=== PATIENT | male | born 1940 | race Two or more races ===

== ENCOUNTER 2023-07-31 02:55 | Emergency (ER) | payer MEDICARE, OTHER, SELFPAY ==
[2023-07-31 03:12] VITALS: BP 138/94; PULSE 75; RESP 18; TEMP 36.3; O2SAT 99; BMI 27.1
--- NOTE | 2023-07-31 03:19 | EX.ED.DYSGE1 ---
HPI History of Present Illness Chief Complaint: Nausea/Vomiting Informant: patient Onset/Context/Timing Onset: Today Context: Sudden Onset Timing: Continuous Quality: Spinning Location: Generalized Worsened by: Laying flat Relieved by: Nothing Narrative Narrative: Patient presents with dizziness, nausea, and vomiting that began tonight. Patient states it began rather suddenly. Patient states that he felt like things were spinning. Patient states he got up to go to the bathroom and was having difficulty walking because he was feeling like the room was spinning. Patient denies any tinnitus or hearing changes. Patient states he started having some nausea and vomiting. Patient states it was mostly dry heaves. Patient denies any diarrhea. Patient denies any melena or hematochezia. Patient denies any urinary complaints. Patient denies any chest pain or shortness of breath. [facility] Medical History BPH (benign prostatic hyperplasia) Heart disease Legally blind DC (myocardial infarction) Pacemaker Home Medications diazepam 2 mg tablet 2 mg PO TID PRN PRN Vertigo #10 TABLETS 07/31/23 [Rx Last Taken Unknown] dofetilide 500 mcg capsule 500 mcg PO Q12H 07/31/23 [History Last Taken Unknown] dorzolamide 22.3 mg-timolol 6.8 mg/mL eye drops 1 drp ophthalmic (eye) Q12H 07/31/23 [History Last Taken Unknown] finasteride 5 mg tablet 5 mg PO DAILY 07/31/23 [History Last Taken Unknown] fluticasone propionate 50 mcg/actuation nasal spray,suspension 2 spray intranasal DAILY 07/31/23 [History Last Taken Unknown] latanoprost 0.005 % eye drops 1 drp ophthalmic (eye) QHS 07/31/23 [History Last Taken Unknown] metoprolol tartrate 50 mg tablet 50 mg PO Q12H 07/31/23 [History Last Taken Unknown] naproxen 250 mg tablet 250 mg PO Q12H 07/31/23 [History Last Taken Unknown] Allergy/AdvReac Type Severity Reaction Status Date / Time No Known Allergies Allergy Verified 07/31/23 03:04 Surgical History AICD (automatic cardioverter/defibrillator) present Hx of bilateral hip replacements Social History Smoking Status: Never smoker ROS ROS ED Constitutional Constitutional ED: Denies chills or fever(s) Eyes Eyes: Denies blurry vision or change in vision ENT ENT ED: Denies rhinorrhea or sore throat Cardiovascular Cardiovascular: Denies chest pain or palpitations Respiratory/Chest Respiratory/Chest: Reports cough; Denies dyspnea Gastrointestinal Gastrointestinal: Reports nausea and vomiting Genitourinary Genitourinary ED: Denies dysuria or hematuria Musculoskeletal Musculoskeletal: Denies back pain or neck pain Integumentary Denies abscess or rash Neurologic Neurologic: Denies headache(s) or weakness Allergic/Immunologic Allergic/Immunologic ED: Denies mouth swelling or urticaria EXAM Physical Exam Const Vital Signs: 07/31/23 03:12 Temperature 97.4 F L Temperature Source Oral Pulse Rate 75 Respiratory Rate 18 Blood Pressure 138/94 H Blood Pressure Mean 108 Pulse Ox 99 Positive well nourished and well developed General Appearance ED: well developed and NAD HEENT Reports moist mucous membranes Eyes EOMs intact bilaterally Eyes Narrative: There is no nystagmus noted. Neck supple and no JVD Resp normal respiratory effort and clear to auscultation bilaterally Cardio regular rate and regular rhythm GI non-tender and non-distended Palpation: soft Neuro oriented x3, CN's II-XII intact bilaterally and no sensory deficits noted Sensorium / Orientation: alert Motor Exam: strength 5/5 throughout MDM MDM MDM Narrative Medical decision making narrative: Differential diagnosis includes vertigo, labyrinthitis, electrolyte abnormality, stroke, viral illness, and dehydration. CT scan of the brain will be obtained to assess for stroke and intracranial bleeding. CBC will be obtained to assess for leukocytosis and anemia. Basic metabolic profile will be obtained to assess for electrolyte abnormality and renal function. COVID-19, influenza, and RSV PCR will be obtained to assess for viral infection. Lab Data Attestation: I reviewed the patient's lab results. Lab results narrative: CBC was reviewed. Hemoglobin was slightly low at 12.3 and hematocrit was 38.1. The remainder is within normal limits. Basic metabolic profile was reviewed. BUN was 22 and creatinine was 1.37. COVID-19 PCR was reviewed and was negative. Influenza PCR was reviewed and was negative for influenza A and influenza B. RSV PCR was reviewed and was negative. Labs: Laboratory Results - last 24 hr 07/31/23 04:04 WBC 9.5 RBC 4.31 L Hgb 12.3 L Hct 38.1 L MCV 88.4 MCH 28.5 MCHC 32.3 RDW Std Deviation 49.1 H RDW Coeff of Vita 15.0 H Plt Count 239 MPV 10.4 Immature Gran % (Auto) 0.300 Neut % (Auto) 69.3 Lymph % (Auto) 19.0 Major % (Auto) 8.9 Eos % (Auto) 1.8 Baso % (Auto) 0.7 Absolute Neuts (auto) 6.6 Absolute Lymphs (auto) 1.80 Nucleated RBC % 0 Sodium 136 Potassium 4.4 Chloride 107 Carbon Dioxide 23.0 Anion Gap 6 BUN 22 H Creatinine 1.37 H Estim Creat Clear Calc 42.29 Est GFR (MDRD) Af Amer 64 Est GFR (MDRD) Non-Af 53 L BUN/Creatinine Ratio 16.1 Glucose 126 H Calcium 8.8 Radiography Diagnostic Testing: Clinical Impression(s) from Imaging Studies Brain CT 07/31/23 03:34 IMPRESSION: 1. Mild chronic intracranial changes. No convincing acute abnormality. 2. Marked paranasal sinusitis. Including at least mild acute sinusitis superimposed on chronic disease. 3. Completely opacified and mildly expansile appearance of the frontal sinuses with very thin segment of left posterior left frontal sinus wall. 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 4. Consider enhanced exam or MRI without and with contrast if there is clinical suspicion of early intracranial spread of infection-inflammation. No discrete epidural abscess is seen on the unenhanced exam. Electronically Signed: Valarie Ruth MD at 4:58 EST , CT scan of the brain was obtained. There are mild chronic changes. There is no acute abnormality noted. There is paranasal sinusitis. There is opacification of the frontal sinuses. This was interpreted by the radiologist was also independently reviewed by myself. Treatment and Re-Evaluation :: Patient was given a dose of Valium here. Patient is feeling better on reevaluation. Patient will be ambulated here in the emergency department. If the patient is able to ambulate without difficulty, I feel safe and discharging the patient home. Patient will be given a prescription for Valium to take as needed for dizziness. Patient was instructed to follow-up with his primary care physician in 3 to 5 days. Patient was instructed to return if worse in any way. Patient understood and was agreeable with the plan. All questions were answered. Patient was able to ambulate here in the emergency department with a steady gait. Patient will be discharged home. Discharge Plan Triage Chief Complaint: Nausea/Vomiting ED Provider: Jagdish Santos Dx/Rx/DC Orders Clinical Impression: Vertigo, Nausea and vomiting Instructions: ED Vertigo, Unspecified Prescriptions: New diazepam [diazepam] 2 mg tablet 2 mg PO TID PRN PRN (Reason: Vertigo) Qty: 10 0RF No Action finasteride 5 mg tablet 5 mg PO DAILY dofetilide 500 mcg capsule 500 mcg PO Q12H metoprolol tartrate 50 mg tablet 50 mg PO Q12H dorzolamide-timolol 22.3-6.8 mg/mL drops 1 drp ophthalmic (eye) Q12H Patient Comments: instill 1 drop into left eye twice a day latanoprost 0.005 % drops 1 drp ophthalmic (eye) QHS fluticasone propionate 50 mcg/actuation spray,suspension 2 spray INTRANASAL DAILY Patient Comments: instill 2 sprays into each nostril every morning naproxen 250 mg tablet 250 mg PO Q12H Patient Comments: take 1 tablet by mouth twice a day Primary Care Provider: Socrates Osullivan Referrals: Socrates Osullivan DO [Primary Care Provider] - 3-5 Days Disposition Disposition: Home, Self Care
--- NOTE | 2023-07-31 03:34 | CT_ITS ---
EXAM: CT HEAD WITHOUT INTRAVENOUS CONTRAST CLINICAL INDICATION: Deficit TECHNIQUE: Multiple axial images were obtained of the head without intravenous contrast. This CT exam was performed using one or more of the following dose reduction techniques: automated exposure control, adjustment of the mA and/or kV according to patient size, and/or use of iterative reconstruction technique. RADIATION DOSE: CTDIvol = 44.99 mGy, DLP = 880.47 mGy-cm COMPARISON: No relevant prior studies available. FINDINGS: BRAIN AND EXTRA-AXIAL SPACES: Mild cerebral volume loss, mildly prominent CSF spaces over the frontal convexities. Mild ventriculomegaly, likely due to hydrocephalus ex vacuo. No intra- or extra-axial hemorrhage. No evidence of acute infarct. No intracranial mass or mass effect. There is preservation of the marroquin/white matter interface. Posterior fossa structures are unremarkable. Basal cisterns are patent. BONES/JOINTS: There is subtotal opacification of most of the paranasal sinuses with air-fluid levels in maxillary sinuses, complete and subtotal opacification of multiple ethmoid air cells, completely opacified and mildly expansile appearing frontal sinuses without visible bone defects, almost completely opacified sphenoid sinuses with sclerotic margins. SOFT TISSUES: Unremarkable. No evidence of intracranial hemorrhage, edema, mass or mass effect. SINUSES: Unremarkable as visualized. Clear. MASTOID AIR CELLS: Unremarkable. Clear. AUDITORY SYSTEM: Well-aerated middle ears and mastoids sinuses. ORBITS: Visualized globes, extraocular muscles, optic nerves and retrobulbar fat appear unremarkable. CT/Brain/Head without Contrast IMPRESSION: 1. Mild chronic intracranial changes. No convincing acute abnormality. 2. Marked paranasal sinusitis. Including at least mild acute sinusitis superimposed on chronic disease. 3. Completely opacified and mildly expansile appearance of the frontal sinuses with very thin segment of left posterior left frontal sinus wall. 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 4. Consider enhanced exam or MRI without and with contrast if there is clinical suspicion of early intracranial spread of infection-inflammation. No discrete epidural abscess is seen on the unenhanced exam. Electronically Signed: Valarie Ruth MD at 4:58 EST ,
[2023-07-31 04:15] LABS: Absolute Neutrophil Count 6.6 X10^3/uL (2.0-7.7); Basophil# 0.07 X10^3/uL; Basophil% 0.7 % (0-1); Eosinophil# 0.17 X10^3/uL; Eosinophils% 1.8 % (0-5); Hematocrit 38.1 % (40-54); Hemoglobin 12.3 g/dL (13.0-16.5); Mean Corp Hgb Conc 32.3 g/dL (32-36); Mean Corpuscular Hgb 28.5 pg (27.0-32.0); Mean Corpuscular Volume 88.4 fL (80-94); Mean Platelet Vol. 10.4 fl (6.2-12.0); Monocyte# 0.84 X10^3/uL; Monocyte% 8.9 % (0-10); NRBC Flagged by Analyzer 0 % (0-5); Neutrophil # 6.58 X10^3/uL (2.7-7.7); Neutrophil % 69.3 % (47-70); Platelet Count 239 K/mm3 (150-450); RBC Distribution Width SD 49.1 fl (35.1-43.9); Red Blood Count 4.31 M/mm3 (4.6-6.2); White Blood Count 9.5 K/mm3 (4.4-11.0)
[2023-07-31] MEDS: diazePAM 5 MG Tablet 2.5 MG PO (04:26)
[2023-07-31 04:31] LABS: Anion Gap 6 (5-15); BUN 22 mg/dL (7-18); BUN/Creat Ratio 16.1 RATIO (10-20); Calcium,Total 8.8 mg/dL (8.5-10.1); Chloride 107 mmol/L (98-107); Creatinine, Serum 1.37 mg/dL (0.70-1.30); EST Glomerular Filtration Rate 53 mL/min (>60); Est Glom Filt Rate - Afr Amer 64 mL/min (>60); Estimated Creatinine Clearance 42.29 ml/min; Glucose 126 mg/dL (74-106); Potassium 4.4 mmol/L (3.5-5.1); Sodium Level 136 mmol/L (136-145)
--- OUTSIDE RECORDS SUMMARY | 2023-07-31 05:19 | XMS RPT_ITS | CCD ---
Author Name Unknown Address [id number] [place] [address] Organization [facility] Care Team Providers Care Laser Beam Trim Operator Name Role Phone Vijay Candelario Unavailable Unavailable Estelita Starr Unavailable Unavailable ESTELITA STARR MD Primary Care Physician Estelita Starr Primary Care Provider [phone] Unavailable Primary Care Provider MARYAN Osorio DO Primary Care Physician Emanuel Harris Unavailable [phone] Emanuel Harris Unavailable [phone] Emanuel Harris Unavailable [phone] MONI SYLVESTER Attending UnavailMONI Atkinson Referring Unavailabl e NAUMOFFESTELITA Primary Care Unavailab le MONI SYLVESTER Referring Unavailabl MONI Nichols Attending Unavailabl e NABRITTANYOFF, ESTELITA ROBERTSON Primary Care Unavailab ISIS Curtis Referring Unavailable ISIS CABALLERO Attending Unavailable MONI SYLVESTER Attending Unavailabl MONI Nichols Referring Unavailabl e NAUMOFF, ESTELITA ROBERTSON Primary Care Unavailab ISIS Curtis Referring Unavailable ALIYA, ESTELITA ROBERTSON Primary Care Unavailab MONI Dietrich Attending UnavailMONI Atkinson Referring Unavailabl e NAUMOFF, ESTELITA ROBERTSON Primary Care Unavailab ISIS Curtis Referring Unavailable ISIS CABALLERO Attending Unavailable ISIS CABALLERO Referring Unavailable ISIS CABALLERO Referring Unavailable ISIS CABALLERO Referring Unavailable MARYAN TESFAYE DO Attending Unavailable MARYAN TESFAYE DO Primary Care Unavailable TESFAYE DO, MARYAN E Attending Unavailable TESFAYE DO, MARYAN E Primary Care Unavailable TESFAYE DO, MARYAN E Attending Unavailable TESFAYE DO, MARYAN E Primary Care Unavailable TESFAYE DO, MARYAN E Attending Unavailable TESFAYE DO, MARYAN E Primary Care Unavailable TESHA CARCAMO, DR ADIEL URIBE Attending Vin TESFAYE DO, MAYRAN E Primary Care Unavailable TESFAYE DO, MARYAN E Attending Unavailable TESFAYE DO, MARYAN E Primary Care Unavailable TESFAYE DO, MARYAN E Attending Unavailable BRIEN DO, MARYAN E Primary Care Unavailable ISIS CABALLERO Attending Unavailable ISIS CABALLERO Referring Unavailable Medications Current Medications Medication Drug Class(es) Dates Sig (Normalized) Sig (Original) 8 hr acetaminophen 650 mg extended release oral tablet (8 sources) Start: 09-09-2022 Tylenol 8 Hour 650 mg oral tablet, extended release Dose : 650 mg = 1 tab(s), Oral, TID, Generic acetaminophen 500-650mg dosing are fine to use. Do not take with alcohol within 24 hour period., # 100 tab(s), 0 Refill(s), Pharmacy: [facility] #[id number], Left shoulder pain, 175, cm, 09/09/22 11:17:00 EDT, Height Start Date: 09/09/22 Status: Ordered Completed/Discontinued Medications Medication Drug Class(es) Dates Sig (Normalized) Sig (Original) dofetilide 0.5 mg oral capsule (20 sources) Antiarrhythmic Start: 09-26-2021 End: 09-27-2022 take 1 capsule by mouth twice daily dofetilide (TIKOSYN) 500 mcg capsule Indications: PAF (paroxysmal atrial fibrillation) (FORMERLY [facility]) Take 1 capsule by mouth twice daily. 180 capsule 3 09/27/2022 Active Problems Active Problems Problem Classification Problem Date Documented Da te Episodic/Chronic Anxiety disorders (8 sources) Anxiety 06-18-2019 Chronic Blindness and vision defects (2 sources) Blindness AND/OR vision impairment level 09-02-2022 Chronic Cardiac dysrhythmias (20 sources) Sinus node dysfunction; Translations: [Sick sinus syndrome] Onset: 0 10-03-2019 Chronic Chronic kidney disease (19 sources) Chronic kidney disease; Translations: [Chronic kidney disease, unspecified] 10-03-2019 Chronic Chronic kidney disease (2 sources) Chronic kidney disease; Translations: [Chronic kidney disease, stage 3 unspecified] Onset: 3 Conduction disorders (20 sources) Automatic implantable cardiac defibrillator in situ; Translations: [Presence of automatic (implantable) cardiac defibrillator] Onset: 4 10-03-2019 Chronic Congestive heart failure; nonhypertensive (17 sources) Chronic systolic heart failure; Translations: [Chronic systolic (congestive) heart failure] Onset: 0 10-03-2019 Chronic Coronary atherosclerosis and other heart disease (17 sources) Coronary arteriosclerosis; Translations: [Atherosclerotic heart disease of [place] coronary artery without angina pectoris] Onset: 0 10-03-2019 Chronic Disorders of lipid metabolism (20 sources) Pure hypercholesterolemia; Translations: [Mixed hyperlipidemia] Onset: 0 06-19-2019 Chronic Essential hypertension (20 sources) Benign essential hypertension; Translations: [Benign hypertension] Onset: 0 06-19-2019 Chronic Fluid and electrolyte disorders (8 sources) Hyperkalemia 11-27-2020 Episodic Genitourinary symptoms and ill-defined conditions (3 sources) Proteinuria; Translations: [Proteinuria, unspecified] Onset: 3 Episodic Glaucoma (19 sources) Glaucoma; Translations: [Primary open angle glaucoma] Onset: 2 06-21-2021 Chronic Gout and other crystal arthropathies (8 sources) Gout 06-18-2019 Chronic Hyperplasia of prostate (12 sources) Benign prostatic hyperplasia; Translations: [Benign prostatic hyperplasia without lower urinary tract symptoms] Onset: 2 06-09-2021 Chronic Miscellaneous mental health disorders (7 sources) Dysphoric mood 11-23-2021 Episodic Occlusion or stenosis of precerebral arteries (8 sources) Arteriosclerosis of carotid artery 06-19-2019 Chronic Osteoarthritis (8 sources) Degenerative polyarthritis 06-19-2019 Chronic Other gastrointestinal disorders (2 sources) Constipation 12-07-2021 Episodic Other lower respiratory disease (1 source) Cough 03-16-2020 Episodic Other lower respiratory disease (7 sources) Persistent cough 11-23-2021 Episodic Other nutritional; endocrine; and metabolic disorders (7 sources) Unintentional weight loss 11-23-2021 Episodic Jocelynn-; endo-; and myocarditis; cardiomyopathy (except that caused by tuberculosis or sexually transmitted disease) (17 sources) Dilated cardiomyopathy; Translations: [Dilated cardiomyopathy] Onset: 0 10-03-2019 Chronic Unclassified (1 source) Unknown / UNK(Unknown) Onset: 7 Unclassified (1 source) VT (ventricular tachycardia); Translations: [VT (ventricular tachycardia)] Onset: 0 Unclassified (2 sources) Dietary intake finding 12-07-2021 Unclassified (1 source) VT (ventricular tachycardia) (HCC); Translations: [VT (ventricular tachycardia) (HCC)] Onset: 0 Past or Other Problems Problem Classification Problem Date Documented Date Episodic/Chronic Residual codes; unclassified (20 sources) Past history of procedure; Translations: [Personal history of other medical treatment] Onset: 07-04-2016 10-03-2019 Episodic Residual codes; unclassified (12 sources) History of cardiac catheterization; Translations: [Other specified postprocedural states] Onset: 07-25-2016 10-03-2019 Episodic Unclassified (1 source) ELECTIVE REPLACEMENT INDICATOR Onset: 12-07-2016 Results Test Name Value Interpretation Reference Range Facil ity Vital Signs Date Time Vital Sign Value Performing Clinician Rosalio helm 12-15-2022 11:32-0400 Body height 175.3 cm Isis Caballero APRN.ART HISTORY PROFESSOR Work Phone: [facility] 12-15-2022 11:32-0400 Body weight 82.1 kg Isis Caballero WAREHOUSE SHIFT SUPERVISOR.ART HISTORY PROFESSOR Work Phone: [facility] 12-15-2022 11:32-0400 Diastolic blood pressure 82 mm[Hg] Isis Caballero WAREHOUSE SHIFT SUPERVISOR.ART HISTORY PROFESSOR Work Phone: [facility] 12-15-2022 11:32-0400 Heart rate 64 /min Isis Caballero WAREHOUSE SHIFT SUPERVISOR.ART HISTORY PROFESSOR Work Phone: [facility] 12-15-2022 11:32-0400 Systolic blood pressure 118 mm[Hg] Isis Caballero WAREHOUSE SHIFT SUPERVISOR.ART HISTORY PROFESSOR Work Phone: [facility] 06-07-2022 10:59-0500 Body height 175.3 cm Isis Caballero WAREHOUSE SHIFT SUPERVISOR.ART HISTORY PROFESSOR Work Phone: [facility] 06-07-2022 10:59-0500 Body weight 77.11 kg Isis Caballero WAREHOUSE SHIFT SUPERVISOR.ART HISTORY PROFESSOR Work Phone: [facility] 06-07-2022 10:59-0500 Diastolic blood pressure 84 mm[Hg] Isis Caballero WAREHOUSE SHIFT SUPERVISOR.ART HISTORY PROFESSOR Work Phone: [facility] 06-07-2022 10:59-0500 Heart rate 73 /min Isis Caballero WAREHOUSE SHIFT SUPERVISOR.ART HISTORY PROFESSOR Work Phone: [facility] 06-07-2022 10:59-0500 Systolic blood pressure 136 mm[Hg] Isis Caballero WAREHOUSE SHIFT SUPERVISOR.ART HISTORY PROFESSOR Work Phone: [facility] 11-23-2021 11:23-0400 Body height 172.7 cm Isis Caballero WAREHOUSE SHIFT SUPERVISOR.ART HISTORY PROFESSOR Work Phone: [facility] 11-23-2021 11:23-0400 Body weight 80.74 kg Isis Caballero WAREHOUSE SHIFT SUPERVISOR.ART HISTORY PROFESSOR Work Phone: [facility] 11-23-2021 11:23-0400 Diastolic blood pressure 72 mm[Hg] Isis Caballero WAREHOUSE SHIFT SUPERVISOR.ART HISTORY PROFESSOR Work Phone: [facility] 11-23-2021 11:23-0400 Heart rate 75 /min Isis Caballero WAREHOUSE SHIFT SUPERVISOR.ART HISTORY PROFESSOR Work Phone: [facility] 11-23-2021 11:23-0400 Systolic blood pressure 102 mm[Hg] Isis Caballero WAREHOUSE SHIFT SUPERVISOR.ART HISTORY PROFESSOR Work Phone: [facility] Encounters Encounter Date Encounter Type Care Provider Facility Start: 03-29-2023 End: 03-29-2023 ambulatory ISIS CABALLERO Facility:[id number] Start: 12-15-2022 End: 12-15-2022 ambulatory ISIS CABALLERO Facility:[id number] Start: 12-15-2022 End: 12-15-2022 Patient encounter procedure Isis Caballero WAREHOUSE SHIFT SUPERVISOR.ART HISTORY PROFESSOR Work Phone: [facility] Cardiology Procedures Date Procedure Procedure Detail Performing Clinician Start: 07-28-2016 Angioplasty of blood vessel ESTELITA STARR MD Start: 04-07-2004 Defibrillator, devic e (physical object) ESTELITA STARR MD Plan of Treatment Date Care Activity Detail Author Start: 01-27-[address] [facility] Start: 11-23-2022 BP CONTROLLED (<130/80) BP CONTROLLED (<130/80) [facility] Start: 06-07-2022 BP CONTROLLED (<130/80) BP CONTROLLED (<130/80) [facility] Start: 05-29-2022 ADVANCE DIRECTIVE DISCUSSION ADVANCE DIRECTIVE DISCUSSION [facility] Start: 05-29-2022 DEPRESSION ASSESSMENT DEPRESSION ASSESSMENT [facility] Start: 01-27-[address] [facility] Start: 07-26-2021 COVID-19 VACCINE (4 - Booster for Moderna series) COVID-19 VACCINE (4 - Booster for Moderna series) [facility] Start: 07-20-2021 COVID-19 VACCINE (4 - Booster for Moderna series) COVID-19 VACCINE (4 - Booster for Moderna series) [facility] Start: 06-22-2021 COVID-19 VACCINE (4 - Booster for Moderna series) COVID-19 VACCINE (4 - Booster for Moderna series) [facility] Start: 06-22-2021 COVID-19 VACCINE (4 - Moderna series) COVID-19 VACCINE (4 - Moderna series) [facility] Start: 05-29-2021 ADVANCE DIRECTIVE DISCUSSION ADVANCE DIRECTIVE DISCUSSION [facility] Start: 05-29-2021 DEPRESSION ASSESSMENT DEPRESSION ASSESSMENT [facility] Start: 2007 PNEUMOVAX AGE 65 AND OVER WITH 5YR LOOKBACK (#1) PNEUMOVAX AGE 65 AND OVER WITH 5YR LOOKBACK (#1) [facility] Start: 1992 SHINGRIX VACCINE (1 of 2) SHINGRIX VACCINE (1 of 2) [facility] Start: 1987 DIABETES SCREEN DIABETES SCREEN [facility] Start: 1961 SHINGRIX VACCINE (1 of 2) SHINGRIX VACCINE (1 of 2) [facility] Start: 1961 Urine microalbumin profile DTAP,TDAP,TD (1 - Tdap) [facility] Start: 1960 ANNUAL PCP TEAM CHRONIC DISEASE VISIT ANNUAL PCP TEAM CHRONIC DISEASE VISIT [facility] Start: 1960 BP CONTROLLED (<130/80) BP CONTROLLED (<130/80) [facility] Start: 1960 HEMOGLOBIN/HEMATOCRIT HEMOGLOBIN/HEMATOCRIT [facility] Start: 1960 Hepatitis B surface antibody level LDL CHOLESTEROL [facility] Start: 1960 SERUM CREATININE SERUM CREATININE [facility] Start: 1954 Adult depression screening assessment DEPRESSION SCREENING [facility] Start: 1948 PNEUMOCOCCAL: 65+ (1 - PCV) PNEUMOCOCCAL: 65+ (1 - PCV) [facility] ECG B/O W INTERP (ME D OFFICE) ECG B/O W INTERP (MED OFFICE) ECG Routine PAF (paroxysmal atrial fibrillation) (HCC) Ordered: 11/23/2021 [facility] Work Phone: Immunizations Immunization Date Immunization Notes Care Provider Fa cili 04-27-2021 COVID-19, mRNA, LNP- S, PF, 100 mcg or 50 mcg dose; Translations: [Moderna COVID-19 Vaccine] ESTELITA STARR MD [facility] 09-10-2020 SARS-CoV-2 (COVID-19 ) mRNA-[id number] vaccine ESTELITA STARR MD [facility] Payers Date Payer Category Payer Medicare [id number] 2015 Private Health Insurance HUMANA HUMANA MEDICARE SUPPLEMENT [id number] 2015-Present [phone] [address] [address] [place] [address] Indemnity [id number] 2015 Private Health Insurance HUMANA HUMANA MEDICARE SUPPLEMENT [id number] 2015-Present [phone] [address] [address] [place] [address] Indemnity [id number] 2007 Medicare [id number] 2007 Medicare MEDICARE MEDICAR E A AND B [id number] 2007-Present [phone] [place] [address] Medicare [id number] 2007 Medicare MEDICARE MEDICAR E A AND B [id number] 2007-Present [phone] [place] [address] Medicare [id number] 2007 Medicare [id number] 1942 Unknown [id number] 1942 Unknown [id number] 1942 Unknown [id number] 1942 Unknown [id number] 1942 Unknown [id number] 1942 Unknown [id number] 1942 Unknown [id number] Social History Date Type Detail Facility Start: 06-19-2019 End: 06-07-2022 Never smoked tobacco (finding) [facility] Sex Assigned At Male [facility] Start: 10-08-2019 End: 06-07-2022 Tobacco use and exposure Smokeless tobacco non-user [facility] Start: 09-03-2021 End: 12-15-2022 Alcohol intake Ex-drinker (finding) [facility] Start: 10-08-2019 History SDOH Alcohol Frequency 1 [facility] Start: 1940 Sex Assigned At Not on file [facility] Start: 08-24-2021 End: 11-23-2021 Exposure to SARS-CoV-2 (event) Not sure [facility] Start: 10-08-2019 End: 12-15-2022 [facility] Start: 10-08-2019 End: 12-15-2022 Alcohol Use Disorder Identification Test - Consumption [AUDIT-C] [facility] How often to you hav e a drink containing alcohol? Never [facility] Average Number of Drinks Not on file [facility] Medical Equipment Procedure Code Equipment Code Equipment Origin al Text Equipment Identifier Dates Dual Icd [employer]-12/07/2016 [id number] Start: 12-07-2016 Clinical Notes 11-27-2020 to 03-29-2023 Isis Caballero APRN.[facility] - 12/15/2022 11:40 AM EDTTelephone Encounter - Shira Briones MA - 09/27/2022 3:58 PM EDTTelephone Encounter - Isis Caballero APRN.[facility] - 09/27/2022 3:20 PM EDTLaboratory Note Date & Type Note Facility 03-29-2023 Note HNO ID: [id number] Author: Vijay Candelario MD Service: ? Author Type: Physician Type: Progress Notes Filed: 04/02/2023 12:21 PM Note Text: DUAL ICD REMOTE CHECK Date: March 29, 2023 Time: 4:00 PM Devices: Implants Defibrillator Dual Icd [employer]-12/07/2016 - Implanted (Left) Chest Wall Model/Cat number: DYNAGEN EL ICD D153 Serial number: [id number] Rope Cleaner: [employer] Lot number: THIRD DUAL ICD IMPLANT. Size: 1? Prevention SCD; Non-Ischemic CM; No inducible VT at EP study; As of 03/02/2022 Status: Implanted Implant System Xen Porcine Dermis Glaucoma Injector Sterile Latex Free - [id number] - Implanted (Right) Eye Inventory item: SYSTEM XEN PORCINE DERMIS GLAUCOMA INJECTOR STERILE LATEX FREE Model/Cat number: [id number] Serial number: [id number] Rope Cleaner: [employer] Lot number: [id number] As of 06/10/2021 Status: Implanted Lead Ra Lead Guidant-04/07/2004 - Implanted Heart Model/Cat number: PERRY II LEIGHANN STEROX 4471-58 Serial number: [id number] Rope Cleaner: [employer] Lot number: LEFT CEPHALIC VEIN Size: Right Atrial Pacing Lead As of 10/08/2019 Status: Implanted Rv Icd Lead Guidant-04/07/2004 - Implanted Heart Model/Cat number: HANNY STOVER G 0185-64 Serial number: [id number] Rope Cleaner: [employer] Lot number: LEFT CEPHALIC VEIN Size: Right Ventricular ICD Lead As of 10/08/2019 Status: Implanted Last Interrogation Date: 12-15-2022 Estimated Remaining Longevity: 7.5 yrs until RAMONE Last Capacitor Reform: 11-09-2022 Charge time: 11.5 seconds High Voltage Impedance: 40 ohms Interrogation Performed by: Megan Damico LPN Programming Parameters Mode: DDDR Lower Rate: 75 Upper Track: 145 Upper Sensor: 130 Paced AV Delay: 150 Sensed AV Delay: 150 Atrial Refractory: 260 Mode Switch: 170 Atrial: Threshold: n/a Programmed amp/PW: 1.2 V @ 0.6 msec P wave: n/a Sensitivity: 0.25 mV Impedance: 404 ohms Pacing percent: 87% Right Ventricle: Threshold: N/a Programmed amp/PW: 1.0 V @ 0.6 msec R wave: 25.0 mV Sensitivity: 0.6 mV Impedance: 789 ohms RV pacin% Episodes: Atrial Fib count: 0 Atrial burden: 0 Mode Switch episodes: 0 Atrial ATP episode: 0 Ventricular ATP episodes: 0 Ventricular Fibrillation count: 0 Fast Ventricular Tachycardia count: 1 Slow Ventricular Tachycardia: 0 NSVT: 1 SUMMARY: Normal device function. Normal pacing and sensing thresholds. Battery: 7.5 yrs until RAMONE. Histogram: ok. Atrial episodes: none. Ventricular episodes: 1 NSVT and 1 VT-1, no therapy. Follow up: 3 months device check and provider appointment. View External Cardiology - Mannequin Coloring Artist STrips [ID [id number]] [facility] 12-15-2022 Note HNO ID: [id number] Author: Isis Caballero APRN.ART HISTORY PROFESSOR Service: ? Author Type: Nurse Practitioner Type: Progress Notes Filed: 12/15/2022 11:40 AM Note Text: [facility] No primary care provider on file. SUBJECTIVE: Srikanth J Rupesh is a 82 year old male who is here today for a follow up visit. Patient is doing well from a cardiovascular standpoint. He has some shortness of breath with exertion. He does not believe this is any different in the past. He admits he does not do a lot of physical activity because his eyesight is so poor. He denies chest pain, palpitations, PND orthopnea, syncope, near-syncope, or edema. PAST MEDICAL HISTORY Diagnosis Date Benign hypertension CAD (coronary artery disease) Chronic systolic heart failure (HCC) CKD (chronic kidney disease) Dilated cardiomyopathy (HCC) LV dysfunction pre-dated CAD Glaucoma H/O echocardiogram 04/05/2017 EF 40%, mild MR, aortic sclerosis and mild AR, mild MR, mild TR, LVH H/O heart artery stent PCI/BMS to the 1st OM of CX by Dr Hills at [facility] History of cardiac cath 07/25/2016 LM normal, RCA normal, 70% OM lesion, EF 30-35% by cardiac cath done at [facility] by Dr Napier History of stress test 07/04/2016 EF 49%, no ischemia ICD (implantable cardioverter-defibrillator) in place 04/07/2004 Dual ICD implanted by Dr Candelario, [employer] Implantable cardioverter-defibrillator (ICD) generator end of life 08/29/2009 Dual ICD gen change at [facility] by Dr Candelario, [employer] Implantable cardioverter-defibrillator (ICD) generator end of life 12/07/2016 Dual ICD gen change at [facility] by Dr Candelario [employer] IVCD (intraventricular conduction defect) Mixed hyperlipidemia PAF (paroxysmal atrial fibrillation) ([facility]ER[facility]) Sinus node dysfunction ([facility]) VT (ventricular tachycardia) ([facility]) Failed Sotalol. 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 Right 06/10/2021 Dr Sylvester AVASTIN (BEVACIZUMAB) 1.25MG INTRAVITREAL INJECTION OS (LEFT EYE) Left 06/17/2021 x 2 CATARACT EXTRACTION W/ INTRAOCULAR LENS IMPLANT HX Bilateral HEMIARTHROPLASTY HIP PARTIAL Bilateral PAST SURGICAL HISTORY OF 12/07/2016 ICD gen change PAST SURGICAL HISTORY OF 07/25/2016 s/p pci PAST SURGICAL HISTORY OF 2003 dual ICD PAST SURGICAL HISTORY OF 2009 dual ICD gen change [employer] FAMILY HISTORY Adopted: Yes SOCIAL HISTORY: Social History Tobacco Use Smoking status: Never Smokeless tobacco: Never Vaping Use Vaping Use: Never used Substance Use Topics Alcohol use: Not Currently Drug use: Never ALLERGIES: Patient has no known allergies. CURRENT MEDICATIONS: Current Outpatient Medications Medication Sig dofetilide (TIKOSYN) 500 mcg capsule Take 1 capsule by mouth twice daily. latanoprost (XALATAN) 0.005 % ophthalmic solution Use 1 Drop in both eyes daily at bedtime. finasteride (PROSCAR) 5 mg tablet Take 1 tablet by mouth once daily. metoprolol tartrate, short acting, (LOPRESSOR) 50 mg tablet Take 1 tablet by mouth twice daily with meals. No current facility-administered medications for this visit. Review of Systems Constitutional: Negative for activity change and fever. Respiratory: Positive for shortness of breath. Negative for apnea, cough, chest tightness, wheezing and stridor. Cardiovascular: Negative for chest pain, palpitations and leg swelling. Gastrointestinal: Negative for abdominal distention, diarrhea and vomiting. Musculoskeletal: Negative for joint swelling, neck pain and neck stiffness. Skin: Negative for color change, pallor and rash. Neurological: Negative for dizziness, syncope, weakness, light-headedness and numbness. Hematological: Does not bruise/bleed easily. Psychiatric/Behavioral: Negative for agitation, behavioral problems and confusion. The patient is not nervous/anxious. All other systems reviewed and are negative. PHYSICAL EXAMINATION: 12/15/22 1132 BP: 118/82 BP Position: Sitting Pulse: 64 Weight: 82.1 kg (181 lb) Height: 175.3 cm (5' 9 ) Last 3 Encounter BP Readings: Date: BP: 06/07/2022 136/84 11/23/2021 102/72 06/07/2021 102/58 Last 3 Encounter Pulse Readings: Date: Pulse: 06/07/2022 73 11/23/2021 75 06/07/2021 78 Last 3 Encounter Wt Readings: Date: Wt: 06/07/2022 77.1 kg (170 lb) 11/23/2021 80.7 kg (178 lb) 06/07/2021 88.4 kg (194 lb 12.8 oz) Physical Exam Vitals and nursing note reviewed. Constitutional: General: He is not in acute distress. Appearance: Normal appearance. He is not toxic-appearing. HENT: Head: Normocephalic and atraumatic. Nose: Nose normal. Mouth/Throat: Mouth: Mucous membranes are moist. Neck: Vascular: No carotid bruit. Cardiovascular: Rate and Rhythm: Normal rate and regular rhythm. Pulses: Normal pulses. Heart sounds: Normal heart sounds. No murmur heard. No friction rub. No gallop. Pulmonary: Effort: Pulmonary effort is normal. (more content not included)... [facility] 12-15-2022 Note HNO ID: [id number] Author: Vijay Candelario MD Service: ? Author Type: Physician Type: Progress Notes Filed: 12/17/2022 1:34 PM Note Text: DUAL ICD Report In Office Check Date: December 15, 2022 Time: 11:09 AM Devices: Implants Defibrillator Dual Icd [employer]-12/07/2016 - Implanted (Left) Chest Wall Model/Cat number: DYNAGEN EL ICD D153 Serial number: [id number] Rope Cleaner: [employer] Lot number: THIRD DUAL ICD IMPLANT. Size: 1? Prevention SCD; Non-Ischemic CM; No inducible VT at EP study; Lead Ra Lead Guidant-04/07/2004 - Implanted Heart Model/Cat number: FINELINE II EZ STEROX 4471-58 Serial number: [id number] Rope Cleaner: [employer] Lot number: LEFT CEPHALIC VEIN Size: Right Atrial Pacing Lead Rv Icd Lead Guidant-04/07/2004 - Implanted Heart Model/Cat number: ENDOTAK RELIANCE G 0185-64 Serial number: [id number] Rope Cleaner: [employer] Lot number: LEFT CEPHALIC VEIN Size: Right Ventricular ICD Lead Symptoms: None Underlying Rhythm: Sinus Rhythm Last Interrogation Date: 06-07-2022 Estimated Remaining Longevity: 8 yrs until RAMONE Last Capacitor Reform: 11-09-2022 Charge time: 11.5 seconds High Voltage Impedance: 45 ohm Dependency: No Interrogation Performed by: Megan Damico LPN Programming Parameters Mode: DDDR Lower Rate: 75 Upper Track: 145 Upper Sensor: 130 Paced AV Delay: 150 Sensed AV Delay: 150 Atrial Refractory: 260 Mode Switch: n/a Atrial: Threshold: 1.2 V @ 0.2 msec Programmed amp/PW: 1.2 V @ 0.6 msec P wave: 2.7 mV Sensitivity: 0.25 mV Impedance: 421 ohm Pacing percent: 93% Right Ventricle: Threshold: 0.7 V @ 0.2 msec Programmed amp/PW: 1.0 V @ 0.6 msec R wave: 25.0 mV Sensitivity: 0.6 mV Impedance: 818 ohm RV pacin% Episodes: Atrial Fib count: 0 Atrial burden: 0 Mode Switch episodes: 0 Atrial ATP episode: 0 Ventricular ATP episodes: 0 Ventricular Fibrillation count: 0 Fast Ventricular Tachycardia count: 0 Slow Ventricular Tachycardia: 0 NSVT: 0 SUMMARY: Normal device function. Normal pacing and sensing thresholds. Battery: 8 yrs until RAMONE. Histogram: poor but no complaints. Atrial episodes: none. Ventricular episodes: none. Changes: per threshold testing. Follow up: 3 month remote, 6 months device check and provider appointment. View External Cardiology - Mannequin Coloring Artist Strips [ID [id number]] [facility] 12-15-2022 History of Presen t illness Narrative [facility] No primary care provider on file. SUBJECTIVE: Srikanth Goddard is a 82 year old male who is here today for a follow up visit. Patient is doing well from a cardiovascular standpoint. He has some shortness of breath with exertion. He does not believe this is any different in the past. He admits he does not do a lot of physical activity because his eyesight is so poor. He denies chest pain, palpitations, PND orthopnea, syncope, near-syncope, or edema. PAST MEDICAL HISTORY Diagnosis Date Benign hypertension CAD (coronary artery disease) Chronic systolic heart failure (HCC) CKD (chronic kidney disease) Dilated cardiomyopathy (HCC) LV dysfunction pre-dated CAD Glaucoma H/O echocardiogram 04/05/2017 EF 40%, mild MR, aortic sclerosis and mild AR, mild MR, mild TR, LVH H/O heart artery stent PCI/BMS to the 1st OM of CX by Dr Hills at [facility] History of cardiac cath 07/25/2016 LM normal, RCA normal, 70% OM lesion, EF 30-35% by cardiac cath done at [facility] by Dr Napier History of stress test 07/04/2016 EF 49%, no ischemia ICD (implantable cardioverter-defibrillator) in place 04/07/2004 Dual ICD implanted by Dr Candelario, [employer] Implantable cardioverter-defibrillator (ICD) generator end of life 08/29/2009 Dual ICD gen change at [facility] by Dr Candelario, [place] [employer] Implantable cardioverter-defibrillator (ICD) generator end of life 12/07/2016 Dual ICD gen change at [facility] by Dr Candelario, [employer] IVCD (intraventricular conduction defect) Mixed hyperlipidemia PAF (paroxysmal atrial fibrillation) (HCC) Sinus node dysfunction (HCC) VT (ventricular tachycardia) (HCC) Failed Sotalol. 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 Right 06/10/2021 Dr Sylvester AVASTIN (BEVACIZUMAB) 1.25MG INTRAVITREAL INJECTION OS (LEFT EYE) Left 06/17/2021 x 2 CATARACT EXTRACTION W/ INTRAOCULAR LENS IMPLANT HX Bilateral HEMIARTHROPLASTY HIP PARTIAL Bilateral PAST SURGICAL HISTORY OF 12/07/2016 ICD gen change PAST SURGICAL HISTORY OF 07/25/2016 s/p pci PAST SURGICAL HISTORY OF 2003 dual ICD PAST SURGICAL HISTORY OF 2009 dual ICD gen change [employer] FAMILY HISTORY Adopted: Yes SOCIAL HISTORY: Social History Tobacco Use Smoking status: Never Smokeless tobacco: Never Vaping Use Vaping Use: Never used Substance Use Topics Alcohol use: Not Currently Drug use: Never ALLERGIES: Patient has no known allergies. CURRENT MEDICATIONS: Current Outpatient Medications Medication Sig dofetilide (TIKOSYN) 500 mcg capsule Take 1 capsule by mouth twice daily. latanoprost (XALATAN) 0.005 % ophthalmic solution Use 1 Drop in both eyes daily at bedtime. finasteride (PROSCAR) 5 mg tablet Take 1 tablet by mouth once daily. metoprolol tartrate, short acting, (LOPRESSOR) 50 mg tablet Take 1 tablet by mouth twice daily with meals. No current facility-administered medications for this visit. Review of Systems Constitutional: Negative for activity change and fever. Respiratory: Positive for shortness of breath. Negative for apnea, cough, chest tightness, wheezing and stridor. Cardiovascular: Negative for chest pain, palpitations and leg swelling. Gastrointestinal: Negative for abdominal distention, diarrhea and vomiting. Musculoskeletal: Negative for joint swelling, neck pain and neck stiffness. Skin: Negative for color change, pallor and rash. Neurological: Negative for dizziness, syncope, weakness, light-headedness and numbness. Hematological: Does not bruise/bleed easily. Psychiatric/Behavioral: Negative for agitation, behavioral problems and confusion. The patient is not nervous/anxious. All other systems reviewed and are negative. PHYSICAL EXAMINATION: 12/15/22 1132 BP: 118/82 BP Position: Sitting Pulse: 64 Weight: 82.1 kg (181 lb) Height: 175.3 cm (5' 9 ) Last 3 Encounter BP Readings: Date: BP: 06/07/2022 136/84 11/23/2021 102/72 06/07/2021 102/58 Last 3 Encounter Pulse Readings: Date: Pulse: 06/07/2022 73 11/23/2021 75 06/07/2021 78 Last 3 Encounter Wt Readings: Date: Wt: 06/07/2022 77.1 kg (170 lb) 11/23/2021 80.7 kg (178 lb) 06/07/2021 88.4 kg (194 lb 12.8 oz) Physical Exam Vitals and nursing note reviewed. Constitutional: General: He is not in acute distress. Appearance: Normal appearance. He is not toxic-appearing. HENT: Head: Normocephalic and atraumatic. Nose: Nose normal. Mouth/Throat: Mouth: Mucous membranes are moist. Neck: Vascular: No carotid bruit. Cardiovascular: Rate and Rhythm: Normal rate and regular rhythm. Pulses: Normal pulses. Heart sounds: Normal heart sounds. No murmur heard. No friction rub. No gallop. Pulmonary: Effort: Pulmonary effort is normal. No respiratory distress. Breath sounds: Normal breath sounds. No stridor. No wheezing, rhonchi or rales. Chest: Chest wall: No tenderness. Abdominal: General: Abdomen is flat. There is no distension. Palpations: Abdomen is soft. There is no mass. Tenderness: There is no abdominal tenderness. Musculoskeletal: General: No swelling. Cervical back: Normal range of motion. No muscular tenderness. Right lower leg: No edema. Left lower leg: No edema. Skin: General: Skin is warm and dry. Capillary Refill: Capillary refill takes less than 2 seconds. Coloration: Skin is not jaundiced or pale. Findings: No bruising or rash. Neurological: General: No focal deficit present. Mental Status: He is alert and oriented to person, place, and time. Mental status is at baseline. Motor: No weakness. Gait: Gait normal. Psychiatric: Mood and Affect: Mood normal. Behavior: Behavior normal. Thought Content: Thought content normal. Judgment: Judgment normal. Diagnostic results: ICD check: SUMMARY: Normal device function. Normal pacing and sensing thresholds. Battery: 8 yrs until RAMONE. Histogram: poor but no complaints. Atrial episodes: none. Ventricular episodes: none. Changes: per threshold testing. ASSESSMENT/PLAN: 1. Benign hypertension - ICD9: 401.1, ICD10: I10 Target BP 130/80 or less. The pt is on chronic medications. Blood pressure controlled on current medications. 2. Coronary artery disease involving [place] coronary artery of [place] heart without angina pectoris - ICD9: 414.01, ICD10: I25.10 History of stent-first OM in 2017. He is on chronic medication. He is not complaining of chest pain. 3. Mixed hyperlipidemia - ICD9: 272.2, ICD10: E78.2 Patient is not on lowering medications. Managed by primary care physician. 4. Dilated cardiomyopathy (HCC) - ICD9: 425.4, ICD10: I42.0 Chronic, the patient has an ICD. Stable. 5. Chronic systolic heart failure (HCC) - ICD9: 428.22, ICD10: I50.22 Chronic, [place] Heart Association class II. The patient is on chronic medications. The patient was instructed to call with any change in symptoms. 6. ICD (implantable cardioverter-defibrillator) in place - ICD9: V45.02, ICD10: Z95.810 The patient has a biventricular ICD. Normal function by today's interrogation. We will plan to interrogate the device every 3 months and p.r.n. 7. VT (ventricular tachycardia) (HCC) - ICD9: 427.1, ICD10: I47.20 Patient on Tikosyn 500 mcg p.o. every 12 hours . He is maintaining sinus rhythm by ICD interrogation. We will plan to continue same medications and monitor for recurrent VT. 8. PAF (paroxysmal atrial fibrillation) (HCC) - ICD9: 427.31, ICD10: I48.0 Patient on Tikosyn 500 mcg p.o. every 12 hours. He is maintaining sinus rhythm by ICD interrogation. We will plan to continue same medications and monitor for atrial fibrillation. documented in this encounter [facility] 09-27-2022 Miscellaneous Notes Labs printed from [facility] See if the patient has a recent BMP in [place], if not have him get a BMP so I can fill out the paperwork for his pharmacy for Tikosyn. documented in this encounter [facility] 09-27-2022 Miscellaneous Notes Patient calls requesting refill: Requested Prescriptions Pending Prescriptions Disp Refills dofetilide (TIKOSYN) 500 mcg capsule 180 capsule 3 Sig: Take 1 capsule by mouth twice daily. Date of last visit:06/07/2022 Phone #: [phone] (home) [phone] (cell) The patients preferred pharmacy has been captured for this encounter? yes is calling and stating that the patient needs a refill on Dofetilide 500 mcg BID 90 day refill [facility]Can you please do that for him documented in this encounter [facility] 09-14-2022 Note HNO ID: [id number] Author: Vijay Candelario MD Service: ? Author Type: Physician Type: Progress Notes Filed: 09/16/2022 11:37 PM Note Text: DUAL ICD REMOTE CHECK Date: September 14, 2022 Time: 1:51 PM Devices: Defibrillator Dual Icd [employer]-12/07/2016 - Implanted (Left) Chest Wall Model/Cat number: EMYAGEN ANGEL KRISHNAN ICD D153 Serial number: [id number] Rope Cleaner: [employer] Lot number: THIRD DUAL ICD IMPLANT. Size: 1? Prevention SCD; Non-Ischemic CM; No inducible VT at EP study; Lead Ra Lead Guidant-04/07/2004 - Implanted Heart Model/Cat number: FINELINE II EZ STEROX 4471-58 Serial number: [id number] Rope Cleaner: [employer] Lot number: LEFT CEPHALIC VEIN Size: Right Atrial Pacing Lead Rv Icd Lead Guidant-04/07/2004 - Implanted Heart Model/Cat number: HANNY Maxwell 0185-64 Serial number: [id number] Rope Cleaner: [employer] Lot number: LEFT CEPHALIC VEIN Size: Right Ventricular ICD Lead Last Interrogation Date: 06-07-2022 Estimated Remaining Longevity: 8.5 yrs until RAMONE Last Capacitor Reform: 05-13-22 Charge time: 11.4 seconds High Voltage Impedance: 40 ohms Interrogation Performed by: Megan Damico LPN Programming Parameters Mode: DDDR Lower Rate: 75 Upper Track: 145 Upper Sensor: 130 Paced AV Delay: 150 Sensed AV Delay: 150 Atrial Refractory: 260 Mode Switch: 170 Atrial: Threshold: n/a Programmed amp/PW: 1.0 V @ 0.6 msec P wave: 2.6 mV Sensitivity: 0.25 mV Impedance: 431 ohms Pacing percent: 93% Right Ventricle: Threshold: N/a Programmed amp/PW: 1.0 V @ 0.6 msec R wave: 25.0 mV Sensitivity: 0.6 mV Impedance: 789 ohms RV pacin% Episodes: Atrial Fib count: 0 Atrial burden: 0 Mode Switch episodes: 0 Atrial ATP episode: 0 Ventricular ATP episodes: 0 Ventricular Fibrillation count: 0 Fast Ventricular Tachycardia count: 0 Slow Ventricular Tachycardia: 0 NSVT: 0 SUMMARY: Normal device function. Normal pacing and sensing thresholds. Battery: 8.5 yrs until RAMONE. Histogram: ok. Atrial episodes: none. Ventricular episodes: none. Follow up: 3 months device check and provider appointment. View External Cardiology - Mannequin Coloring Artist Strips [ID [id number]] [facility] 09-14-2022 History of Presen t illness Narrative DUAL ICD REMOTE CHECK Date: September 14, 2022 Time: 1:51 PM Devices: Defibrillator Dual Icd [employer]-12/07/2016 - Implanted (Left) Chest Wall Model/Cat number: YOUNG ORTIZ DR ICD D153 Serial number: [id number] Rope Cleaner: [employer] Lot number: THIRD DUAL ICD IMPLANT. Size: 1 Prevention SCD; Non-Ischemic CM; No inducible VT at EP study; Lead Ra Lead Guidant-04/07/2004 - Implanted Heart Model/Cat number: FINELINE II EZ STEROX 4471-58 Serial number: [id number] Rope Cleaner: [employer] Lot number: LEFT CEPHALIC VEIN Size: Right Atrial Pacing Lead Rv Icd Lead Guidant-04/07/2004 - Implanted Heart Model/Cat number: HANNY STOVER G 0185-64 Serial number: [id number] Rope Cleaner: [employer] Lot number: LEFT CEPHALIC VEIN Size: Right Ventricular ICD Lead Last Interrogation Date: 06-07-2022 Estimated Remaining Longevity: 8.5 yrs until RAMONE Last Capacitor Reform: 05-13-22 Charge time: 11.4 seconds High Voltage Impedance: 40 ohms Interrogation Performed by: Megan Damico LPN Programming Parameters Mode: DDDR Lower Rate: 75 Upper Track: 145 Upper Sensor: 130 Paced AV Delay: 150 Sensed AV Delay: 150 Atrial Refractory: 260 Mode Switch: 170 Atrial: Threshold: n/a Programmed amp/PW: 1.0 V @ 0.6 msec P wave: 2.6 mV Sensitivity: 0.25 mV Impedance: 431 ohms Pacing percent: 93% Right Ventricle: Threshold: N/a Programmed amp/PW: 1.0 V @ 0.6 msec R wave: 25.0 mV Sensitivity: 0.6 mV Impedance: 789 ohms RV pacin% Episodes: Atrial Fib count: 0 Atrial burden: 0 Mode Switch episodes: 0 Atrial ATP episode: 0 Ventricular ATP episodes: 0 Ventricular Fibrillation count: 0 Fast Ventricular Tachycardia count: 0 Slow Ventricular Tachycardia: 0 NSVT: 0 SUMMARY: Normal device function. Normal pacing and sensing thresholds. Battery: 8.5 yrs until RAMONE. Histogram: ok. Atrial episodes: none. Ventricular episodes: none. Follow up: 3 months device check and provider appointment. View External Cardiology - Mannequin Coloring Artist Strips [ID [id number]] documented in this encounter [facility] 06-07-2022 Note HNO ID: [id number] Author: Isis Caballero APRN.ART HISTORY PROFESSOR Service: ? Author Type: Nurse Practitioner Type: Progress Notes Filed: 06/07/2022 11:26 AM Note Text: [facility] No primary care provider on file. SUBJECTIVE: Srikanth Goddard is a 82 year old male who is here today for a follow up visit. The patient is doing well from the cardiovascular standpoint. He denies chest pain, shortness of breath, palpitations, PND, orthopnea, syncope, near-syncope, or edema. PAST MEDICAL HISTORY Diagnosis Date Benign hypertension CAD (coronary artery disease) Chronic systolic heart failure (HCC) CKD (chronic kidney disease) Dilated cardiomyopathy (HCC) LV dysfunction pre-dated CAD Glaucoma H/O echocardiogram 04/05/2017 EF 40%, mild MR, aortic sclerosis and mild AR, mild MR, mild TR, LVH H/O heart artery stent PCI/BMS to the 1st OM of CX by Dr Hills at [facility] History of cardiac cath 07/25/2016 LM normal, RCA normal, 70% OM lesion, EF 30-35% by cardiac cath done at [facility] by Dr Napier History of stress test 07/04/2016 EF 49%, no ischemia ICD (implantable cardioverter-defibrillator) in place 04/07/2004 Dual ICD implanted by Dr Candelario, [employer] Implantable cardioverter-defibrillator (ICD) generator end of life 08/29/2009 Dual ICD gen change at [facility] by Dr Candelario, [employer] Implantable cardioverter-defibrillator (ICD) generator end of life 12/07/2016 Dual ICD gen change at [facility] by Dr Candelario, [employer] IVCD (intraventricular conduction defect) Mixed hyperlipidemia PAF (paroxysmal atrial fibrillation) ([facility]) Sinus node dysfunction ([facility]) VT (ventricular tachycardia) Failed Sotalol. 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 Right 06/10/2021 Dr Sylvester AVASTIN (BEVACIZUMAB) 1.25MG INTRAVITREAL INJECTION OS (LEFT EYE) Left 06/17/2021 x 2 CATARACT EXTRACTION W/ INTRAOCULAR LENS IMPLANT HX Bilateral HEMIARTHROPLASTY HIP PARTIAL Bilateral PAST SURGICAL HISTORY OF 12/07/2016 ICD gen change PAST SURGICAL HISTORY OF 07/25/2016 s/p pci PAST SURGICAL HISTORY OF 2003 dual ICD PAST SURGICAL HISTORY OF 2009 dual ICD gen change [employer] FAMILY HISTORY Adopted: Yes SOCIAL HISTORY: Social History Tobacco Use Smoking status: Never Smokeless tobacco: Never Vaping Use Vaping Use: Never used Substance Use Topics Alcohol use: Not Currently Drug use: Never ALLERGIES: Patient has no known allergies. CURRENT MEDICATIONS: Current Outpatient Medications Medication Sig metoprolol tartrate, short acting, (LOPRESSOR) 50 mg tablet Take 1 tablet by mouth twice daily with meals. dofetilide (TIKOSYN) 500 mcg capsule Take 1 capsule by mouth twice daily. latanoprost (XALATAN) 0.005 % ophthalmic solution Use 1 Drop in both eyes daily at bedtime. finasteride (PROSCAR) 5 mg tablet Take 1 tablet by mouth once daily. No current facility-administered medications for this visit. Review of Systems Constitutional: Negative for activity change and fever. Respiratory: Negative for apnea, cough, chest tightness, shortness of breath, wheezing and stridor. Cardiovascular: Negative for chest pain, palpitations and leg swelling. Gastrointestinal: Negative for abdominal distention, diarrhea and vomiting. Musculoskeletal: Negative for joint swelling, neck pain and neck stiffness. Skin: Negative for color change, pallor and rash. Neurological: Negative for dizziness, syncope, weakness, light-headedness and numbness. Hematological: Does not bruise/bleed easily. Psychiatric/Behavioral: Negative for agitation, behavioral problems and confusion. The patient is not nervous/anxious. All other systems reviewed and are negative. PHYSICAL EXAMINATION: 06/07/22 1059 BP: 136/84 Pulse: 73 Weight: 77.1 kg (170 lb) Height: 175.3 cm (5' 9 ) Last 3 Encounter BP Readings: Date: BP: 11/23/2021 102/72 06/07/2021 102/58 06/02/2021 119/61 Last 3 Encounter Pulse Readings: Date: Pulse: 11/23/2021 75 06/07/2021 78 06/02/2021 75 Last 3 Encounter Wt Readings: Date: Wt: 11/23/2021 80.7 kg (178 lb) 06/07/2021 88.4 kg (194 lb 12.8 oz) 05/17/2021 90.3 kg (199 lb) Physical Exam Vitals and nursing note reviewed. Constitutional: General: He is not in acute distress. Appearance: Normal appearance. He is not toxic-appearing. HENT: Head: Normocephalic and atraumatic. Nose: Nose normal. Mouth/Throat: Mouth: Mucous membranes are moist. Neck: Vascular: No carotid bruit. Cardiovascular: Rate and Rhythm: Normal rate and regular rhythm. Pulses: Normal pulses. Heart sounds: Normal heart sounds. No murmur heard. No friction rub. No gallop. Pulmonary: Effort: Pulmonary effort is normal. No respiratory distress. Breath sounds: Normal breath sounds. No stridor. No wheezing, rhonchi or rales. Chest: Chest wall: No tenderness. Abdominal: General: Abdomen is flat. There is no distensio (more content not included)... [facility] 06-07-2022 Note HNO ID: [id number] Author: Vijay Candelario MD Service: ? Author Type: Physician Type: Progress Notes Filed: 06/12/2022 11:18 PM Note Text: DUAL ICD Report In Office Check Date: June 07, 2022 Time: 10:40 AM Devices: Implants Defibrillator Dual Icd [employer]-12/07/2016 - Implanted (Left) Chest Wall Model/Cat number: EMYAGEN EL ICD D153 Serial number: [id number] Rope Cleaner: [employer] Lot number: THIRD DUAL ICD IMPLANT. Size: 1? Prevention SCD; Non-Ischemic CM; No inducible VT at EP study; Lead Ra Lead [employer]ant-04/07/2004 - Implanted Heart Model/Cat number: FINELINE II EZ STEROX 4471-58 Serial number: [id number] Rope Cleaner: [employer] Lot number: LEFT CEPHALIC VEIN Size: Right Atrial Pacing Lead Rv Icd [employer] Guidant-04/07/2004 - Implanted Heart Model/Cat number: ENDOTAK RELIANCE G 0185-64 Serial number: [id number] Rope Cleaner: [employer] Lot number: LEFT CEPHALIC VEIN Size: Right Ventricular ICD Lead Symptoms: Vision is pretty well gone. Underlying Rhythm: Sinus Rhythm Last Interrogation Date: 11-23-2021 Estimated Remaining Longevity: 8.5 yrs until RAMONE Last Capacitor Reform: 05-13-2022 Charge time: 11.4 seconds High Voltage Impedance: 42 ohm Dependency: No Interrogation Performed by: Megan Damico LPN Programming Parameters Mode: DDDR Lower Rate: 75 Upper Track: 145 Upper Sensor: 130 Paced AV Delay: 150 Sensed AV Delay: 150 Atrial Refractory: 260 Mode Switch: n/a Atrial: Threshold: 1.0 V @ 0.2 msec Programmed amp/PW: 1.0 V @ 0.6 msec P wave: 3.8 mV Sensitivity: 0.25 mV Impedance: 426 ohm Pacing percent: 94% Right Ventricle: Threshold: 0.8 V @ 0.2 msec Programmed amp/PW: 1.0 V @ 0.6 msec R wave: 25.0 mV Sensitivity: 0.6 mV Impedance: 776 ohm RV pacin% Episodes: Atrial Fib count: 0 Atrial burden: 0 Mode Switch episodes: 0 Atrial ATP episode: 0 Ventricular ATP episodes: 0 Ventricular Fibrillation count: 0 Fast Ventricular Tachycardia count: 0 Slow Ventricular Tachycardia: 0 NSVT: 0 SUMMARY: Normal device function. Normal pacing and sensing thresholds. Battery: 8.5 yrs until RAMONE. Histogram: poor, he doesn't go anywhere d/t his vision being gone now. Atrial episodes: none. Ventricular episodes: none. Changes: none. Follow up: 3 month remote, 6 months device check and provider appointment. View External Cardiology - Mannequin Coloring Artist Strips [ID [id number]] [facility] 06-07-2022 History of Presen t illness Narrative [facility] No primary care provider on file. SUBJECTIVE: Srikanth Goddard is a 82 year old male who is here today for a follow up visit. The patient is doing well from the cardiovascular standpoint. He denies chest pain, shortness of breath, palpitations, PND, orthopnea, syncope, near-syncope, or edema. PAST MEDICAL HISTORY Diagnosis Date Benign hypertension CAD (coronary artery disease) Chronic systolic heart failure (HCC) CKD (chronic kidney disease) Dilated cardiomyopathy (HCC) LV dysfunction pre-dated CAD Glaucoma H/O echocardiogram 04/05/2017 EF 40%, mild MR, aortic sclerosis and mild AR, mild MR, mild TR, LVH H/O heart artery stent PCI/BMS to the 1st OM of CX by Dr Hills at [facility] History of cardiac cath 07/25/2016 LM normal, RCA normal, 70% OM lesion, EF 30-35% by cardiac cath done at [facility] by Dr Napier History of stress test 07/04/2016 EF 49%, no ischemia ICD (implantable cardioverter-defibrillator) in place 04/07/2004 Dual ICD implanted by Dr Candelario, [employer] Implantable cardioverter-defibrillator (ICD) generator end of life 08/29/2009 Dual ICD gen change at [facility] by Dr Candelario [employer] Implantable cardioverter-defibrillator (ICD) generator end of life 12/07/2016 Dual ICD gen change at [facility] by Dr Candelario [employer] IVCD (intraventricular conduction defect) Mixed hyperlipidemia PAF (paroxysmal atrial fibrillation) (HCC) Sinus node dysfunction (HCC) VT (ventricular tachycardia) Failed Sotalol. 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 Right 06/10/2021 Dr Sylvester AVASTIN (BEVACIZUMAB) 1.25MG INTRAVITREAL INJECTION OS (LEFT EYE) Left 06/17/2021 x 2 CATARACT EXTRACTION W/ INTRAOCULAR LENS IMPLANT HX Bilateral HEMIARTHROPLASTY HIP PARTIAL Bilateral PAST SURGICAL HISTORY OF 12/07/2016 ICD gen change PAST SURGICAL HISTORY OF 07/25/2016 s/p pci PAST SURGICAL HISTORY OF 2003 dual ICD PAST SURGICAL HISTORY OF 2009 dual ICD gen change [employer] FAMILY HISTORY Adopted: Yes SOCIAL HISTORY: Social History Tobacco Use Smoking status: Never Smokeless tobacco: Never Vaping Use Vaping Use: Never used Substance Use Topics Alcohol use: Not Currently Drug use: Never ALLERGIES: Patient has no known allergies. CURRENT MEDICATIONS: Current Outpatient Medications Medication Sig metoprolol tartrate, short acting, (LOPRESSOR) 50 mg tablet Take 1 tablet by mouth twice daily with meals. dofetilide (TIKOSYN) 500 mcg capsule Take 1 capsule by mouth twice daily. latanoprost (XALATAN) 0.005 % ophthalmic solution Use 1 Drop in both eyes daily at bedtime. finasteride (PROSCAR) 5 mg tablet Take 1 tablet by mouth once daily. No current facility-administered medications for this visit. Review of Systems Constitutional: Negative for activity change and fever. Respiratory: Negative for apnea, cough, chest tightness, shortness of breath, wheezing and stridor. Cardiovascular: Negative for chest pain, palpitations and leg swelling. Gastrointestinal: Negative for abdominal distention, diarrhea and vomiting. Musculoskeletal: Negative for joint swelling, neck pain and neck stiffness. Skin: Negative for color change, pallor and rash. Neurological: Negative for dizziness, syncope, weakness, light-headedness and numbness. Hematological: Does not bruise/bleed easily. Psychiatric/Behavioral: Negative for agitation, behavioral problems and confusion. The patient is not nervous/anxious. All other systems reviewed and are negative. PHYSICAL EXAMINATION: 06/07/22 1059 BP: 136/84 Pulse: 73 Weight: 77.1 kg (170 lb) Height: 175.3 cm (5' 9 ) Last 3 Encounter BP Readings: Date: BP: 11/23/2021 102/72 06/07/2021 102/58 06/02/2021 119/61 Last 3 Encounter Pulse Readings: Date: Pulse: 11/23/2021 75 06/07/2021 78 06/02/2021 75 Last 3 Encounter Wt Readings: Date: Wt: 11/23/2021 80.7 kg (178 lb) 06/07/2021 88.4 kg (194 lb 12.8 oz) 05/17/2021 90.3 kg (199 lb) Physical Exam Vitals and nursing note reviewed. Constitutional: General: He is not in acute distress. Appearance: Normal appearance. He is not toxic-appearing. HENT: Head: Normocephalic and atraumatic. Nose: Nose normal. Mouth/Throat: Mouth: Mucous membranes are moist. Neck: Vascular: No carotid bruit. Cardiovascular: Rate and Rhythm: Normal rate and regular rhythm. Pulses: Normal pulses. Heart sounds: Normal heart sounds. No murmur heard. No friction rub. No gallop. Pulmonary: Effort: Pulmonary effort is normal. No respiratory distress. Breath sounds: Normal breath sounds. No stridor. No wheezing, rhonchi or rales. Chest: Chest wall: No tenderness. Abdominal: General: Abdomen is flat. There is no distension. Palpations: Abdomen is soft. There is no mass. Tenderness: There is no abdominal tenderness. Musculoskeletal: General: No swelling. Cervical back: Normal range of motion. No muscular tenderness. Right lower leg: No edema. Left lower leg: No edema. Skin: Capillary Refill: Capillary refill takes less than 2 seconds. Coloration: Skin is not jaundiced or pale. Findings: No bruising or rash. Neurological: General: No focal deficit present. Mental Status: He is alert and oriented to person, place, and time. Mental status is at baseline. Motor: No weakness. Gait: Gait normal. Psychiatric: Mood and Affect: Mood normal. Behavior: Behavior normal. Thought Content: Thought content normal. Judgment: Judgment normal. Diagnostic results: ICD check: Comment: Normal device function. Normal pacing and sensing thresholds. Battery: 8.5 yrs until RAMONE. Histogram: poor, he doesn't go anywhere d/t his vision being gone now. Atrial episodes: none. Ventricular episodes: none. Changes: none. ASSESSMENT/PLAN: 1. Benign hypertension - ICD9: 401.1, ICD10: I10 Target BP 130/80 or less. The pt is on chronic medications. Blood pressure reasonably well controlled on current medications. 2. Coronary artery disease involving [place] coronary artery of [place] heart without angina pectoris - ICD9: 414.01, ICD10: I25.10 Stent to first OM of circumflex in 2017. The patient is on chronic medication. He is not complaining of chest pain. 3. Mixed hyperlipidemia - ICD9: 272.2, ICD10: E78.2 Patient is on . Managed by primary care physician. 4. Dilated cardiomyopathy (HCC) - ICD9: 425.4, ICD10: I42.0 Chronic, the patient has an ICD. Stable. 5. Chronic systolic heart failure (HCC) - ICD9: 428.22, ICD10: I50.22 Chronic, [place] Heart Association class I. The patient is on chronic medications. The patient was instructed to call with any change in symptoms. 6. ICD (implantable cardioverter-defibrillator) in place - ICD9: V45.02, ICD10: Z95.810 The patient has a dual chamber ICD. Normal function by today's interrogation. We will plan to interrogate the patient's defibrillator every 3 months and p.r.n. 7. PAF (paroxysmal atrial fibrillation) (HCC) - ICD9: 427.31, ICD10: I48.0 The patient is presently on Tikosyn 500 mcg p.o. every 12 hours. He is maintaining sinus rhythm by ICD interrogation. We will plan to continue to medications monitor for recurrent A. fib. 8. VT (ventricular tachycardia) - ICD9: 427.1, ICD10: I47.20 The patient is presently on Tikosyn 500 mcg p.o. every 12 hours. He is maintaining sinus rhythm by ICD interrogation. We will plan to continue to medications monitor for recurrent ventricular tachycardia. Isis Caballero APRN.BEATRICE documented in this encounter [facility] 06-07-2022 History of Presen t illness Narrative DUAL ICD Report In Office Check Date: June 07, 2022 Time: 10:40 AM Devices: Implants Defibrillator Dual Icd [employer]-12/07/2016 - Implanted (Left) Chest Wall Model/Cat number: EMYAGEN ANGEL KRISHNAN ICD D153 Serial number: [id number] Rope Cleaner: [employer] Lot number: THIRD DUAL ICD IMPLANT. Size: 1 Prevention SCD; Non-Ischemic CM; No inducible VT at EP study; Lead Ra Lead Guidant-04/07/2004 - Implanted Heart Model/Cat number: FINELINE II EZ STEROX 4471-58 Serial number: [id number] Rope Cleaner: [employer] Lot number: LEFT CEPHALIC VEIN Size: Right Atrial Pacing Lead Rv Icd Lead Guidant-04/07/2004 - Implanted Heart Model/Cat number: HANNY Maxwell 0185-64 Serial number: [id number] Rope Cleaner: [employer] Lot number: LEFT CEPHALIC VEIN Size: Right Ventricular ICD Lead Symptoms: Vision is pretty well gone. Underlying Rhythm: Sinus Rhythm Last Interrogation Date: 11-23-2021 Estimated Remaining Longevity: 8.5 yrs until RAMONE Last Capacitor Reform: 05-13-2022 Charge time: 11.4 seconds High Voltage Impedance: 42 ohm Dependency: No Interrogation Performed by: Megan Damico LPN Programming Parameters Mode: DDDR Lower Rate: 75 Upper Track: 145 Upper Sensor: 130 Paced AV Delay: 150 Sensed AV Delay: 150 Atrial Refractory: 260 Mode Switch: n/a Atrial: Threshold: 1.0 V @ 0.2 msec Programmed amp/PW: 1.0 V @ 0.6 msec P wave: 3.8 mV Sensitivity: 0.25 mV Impedance: 426 ohm Pacing percent: 94% Right Ventricle: Threshold: 0.8 V @ 0.2 msec Programmed amp/PW: 1.0 V @ 0.6 msec R wave: 25.0 mV Sensitivity: 0.6 mV Impedance: 776 ohm RV pacin% Episodes: Atrial Fib count: 0 Atrial burden: 0 Mode Switch episodes: 0 Atrial ATP episode: 0 Ventricular ATP episodes: 0 Ventricular Fibrillation count: 0 Fast Ventricular Tachycardia count: 0 Slow Ventricular Tachycardia: 0 NSVT: 0 SUMMARY: Normal device function. Normal pacing and sensing thresholds. Battery: 8.5 yrs until RAMONE. Histogram: poor, he doesn't go anywhere d/t his vision being gone now. Atrial episodes: none. Ventricular episodes: none. Changes: none. Follow up: 3 month remote, 6 months device check and provider appointment. View External Cardiology - Mannequin Coloring Artist Strips [ID [id number]] documented in this encounter [facility] 03-02-2022 Note HNO ID: [id number] Author: Vijay Candelario MD Service: ? Author Type: Physician Type: Progress Notes Filed: 03/20/2022 3:00 PM Note Text: DUAL ICD REMOTE CHECK Date: March 02, 2022 Time: 9:37 AM Devices: Implants Defibrillator Dual Icd [employer]-12/07/2016 - Implanted (Left) Chest Wall Model/Cat number: DYNAGEN EL DR ICD D153 Serial number: [id number] Rope Cleaner: [employer] Lot number: THIRD DUAL ICD IMPLANT. Size: 1? Prevention SCD; Non-Ischemic CM; No inducible VT at EP study; Lead Ra Lead Guidant-04/07/2004 - Implanted Heart Model/Cat number: FINELINE II EZ STEROX 4471-58 Serial number: [id number] Rope Cleaner: [employer] Lot number: LEFT CEPHALIC VEIN Size: Right Atrial Pacing Lead As of 10/08/2019 Status: Implanted Rv Icd Lead Guidant-04/07/2004 - Implanted Heart Model/Cat number: ENDOTAK RELIANCE G 0185-64 Serial number: [id number] Rope Cleaner: [employer] Lot number: LEFT CEPHALIC VEIN Size: Right Ventricular ICD Lead Last Interrogation Date: 11-23-2021 Estimated Remaining Longevity: 9 yrs until RAMONE Last Capacitor Reform: 11-14-2021 Charge time: 11.3 seconds High Voltage Impedance: 40 ohms Interrogation Performed by: Megan Damico LPN Programming Parameters Mode: DDDR Lower Rate: 75 Upper Track: 145 Upper Sensor: 130 Paced AV Delay: 150 Sensed AV Delay: 150 Atrial Refractory: 260 Mode Switch: 170 Atrial: Threshold: n/a Programmed amp/PW: 1.0 V @ 0.6 msec P wave: n/a Sensitivity: 0.25 mV Impedance: 404 ohms Pacing percent: 95% Right Ventricle: Threshold: N/a Programmed amp/PW: 1.0 V @ 0.6 msec R wave: 25.0 mV Sensitivity: 0.6 mV Impedance: 798 ohms RV pacin% Episodes: Atrial Fib count: 0 Atrial burden: 0 Mode Switch episodes: 0 Atrial ATP episode: 0 Ventricular ATP episodes: 0 Ventricular Fibrillation count: 0 Fast Ventricular Tachycardia count: 0 Slow Ventricular Tachycardia: 0 NSVT: 0 SUMMARY: Normal device function. Normal pacing and sensing thresholds. Battery: 9 yrs until RAMOEN. Histogram: ok. Atrial episodes: none. Ventricular episodes: none. Follow up: 3 months device check and provider appointment. View External Cardiology - Mannequin Coloring Artist Strips [ID [id number]] [facility] 03-02-2022 History of Presen t illness Narrative DUAL ICD REMOTE CHECK Date: March 02, 2022 Time: 9:37 AM Devices: Implants Defibrillator Dual Icd [employer]-12/07/2016 - Implanted (Left) Chest Wall Model/Cat number: EMYAGEN EL DR ICD D153 Serial number: [id number] Rope Cleaner: [employer] Lot number: THIRD DUAL ICD IMPLANT. Size: 1 Prevention SCD; Non-Ischemic CM; No inducible VT at EP study; Lead Ra Lead Guidant-04/07/2004 - Implanted Heart Model/Cat number: FINELINE II EZ STEROX 4471-58 Serial number: [id number] Rope Cleaner: [employer] Lot number: LEFT CEPHALIC VEIN Size: Right Atrial Pacing Lead As of 10/08/2019 Status: Implanted Rv Icd Lead Guidant-04/07/2004 - Implanted Heart Model/Cat number: ENDOTAK RELIANCE G 0185-64 Serial number: [id number] Rope Cleaner: [employer] Lot number: LEFT CEPHALIC VEIN Size: Right Ventricular ICD Lead Last Interrogation Date: 11-23-2021 Estimated Remaining Longevity: 9 yrs until RAMONE Last Capacitor Reform: 11-14-2021 Charge time: 11.3 seconds High Voltage Impedance: 40 ohms Interrogation Performed by: Megan Damico LPN Programming Parameters Mode: DDDR Lower Rate: 75 Upper Track: 145 Upper Sensor: 130 Paced AV Delay: 150 Sensed AV Delay: 150 Atrial Refractory: 260 Mode Switch: 170 Atrial: Threshold: n/a Programmed amp/PW: 1.0 V @ 0.6 msec P wave: n/a Sensitivity: 0.25 mV Impedance: 404 ohms Pacing percent: 95% Right Ventricle: Threshold: N/a Programmed amp/PW: 1.0 V @ 0.6 msec R wave: 25.0 mV Sensitivity: 0.6 mV Impedance: 798 ohms RV pacin% Episodes: Atrial Fib count: 0 Atrial burden: 0 Mode Switch episodes: 0 Atrial ATP episode: 0 Ventricular ATP episodes: 0 Ventricular Fibrillation count: 0 Fast Ventricular Tachycardia count: 0 Slow Ventricular Tachycardia: 0 NSVT: 0 SUMMARY: Normal device function. Normal pacing and sensing thresholds. Battery: 9 yrs until RAMONE. Histogram: ok. Atrial episodes: none. Ventricular episodes: none. Follow up: 3 months device check and provider appointment. View External Cardiology - Mannequin Coloring Artist Strips [ID [id number]] documented in this encounter [facility] 01-19-2022 Miscellaneous Notes I spoke with his today and she's going to check with Srikanth to see what he wants to do regarding care and surgery with us, and then give us a call back. Can you please ask him what his situation is? When I last saw him in August, I was recommending a tube implant left eye I don't see any upcoming appointments. Is he back seeing his referring grid trimmer? Once I know what his plan is, we can refill his meds. Thank you. If he is not intending on surgery, then he needs an clinic visit with me or with his local doc. Patient's request for medication is as follows: Pending Prescriptions Disp Refills LATANOPROST 0.005 % EYE DROPS 7.5 mL 3 Sig: Use 1 Drop in both eyes daily at bedtime. KRIS: No The patient is requesting a 90-day supply be sent to [facility]. Prescription(s) as above. Please process accordingly. Madeleine Fallon documented in this encounter [facility] 11-23-2021 Note HNO ID: [id number] Author: Isis Caballero APRN.ART HISTORY PROFESSOR Service: ? Author Type: Nurse Practitioner Type: Progress Notes Filed: 12/23/2021 2:20 PM Note Text: [facility] Estelita Starr MD SUBJECTIVE: Srikanth Goddard is a 81 year old male who is here today for a follow up visit. The patient is doing well from the cardiovascular standpoint. He denies chest pain, shortness of breath, palpitations, PND, orthopnea, syncope, near-syncope, or edema. PAST MEDICAL HISTORY Diagnosis Date - Benign hypertension - CAD (coronary artery disease) - Chronic systolic heart failure (HCC) - CKD (chronic kidney disease) - Dilated cardiomyopathy (HCC) LV dysfunction pre-dated CAD - Glaucoma - H/O echocardiogram 04/05/2017 EF 40%, mild MR, aortic sclerosis and mild AR, mild MR, mild TR, LVH - H/O heart artery stent PCI/BMS to the 1st OM of CX by Dr Hills at [facility] - History of cardiac cath 07/25/2016 LM normal, RCA normal, 70% OM lesion, EF 30-35% by cardiac cath done at [facility] by Dr Napier - History of stress test 07/04/2016 EF 49%, no ischemia - ICD (implantable cardioverter-defibrillator) in place 04/07/2004 Dual ICD implanted by Dr Candelario [employer] - Implantable cardioverter-defibrillator (ICD) generator end of life 08/29/2009 Dual ICD gen change at [facility] by Dr Candelario [employer] - Implantable cardioverter-defibrillator (ICD) generator end of life 12/07/2016 Dual ICD gen change at [facility] by Dr Candelario [employer] - IVCD (intraventricular conduction defect) - Mixed hyperlipidemia - PAF (paroxysmal atrial fibrillation) ([facility]) - Sinus node dysfunction (HCC) - VT (ventricular tachycardia) ([facility]) Failed Sotalol. 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 Right 06/10/2021 Dr Sylvester - AVASTIN (BEVACIZUMAB) 1.25MG INTRAVITREAL INJECTION OS (LEFT EYE) Left 06/17/2021 x 2 - CATARACT EXTRACTION W/ INTRAOCULAR LENS IMPLANT HX Bilateral - HEMIARTHROPLASTY HIP PARTIAL Bilateral - PAST SURGICAL HISTORY OF 12/07/2016 ICD gen change - PAST SURGICAL HISTORY OF 07/25/2016 s/p pci - PAST SURGICAL HISTORY OF 2003 dual ICD - PAST SURGICAL HISTORY OF 2009 dual ICD gen change [employer] FAMILY HISTORY Adopted: Yes SOCIAL HISTORY: Social History Tobacco Use - Smoking status: Never Smoker - Smokeless tobacco: Never Used Vaping Use - Vaping Use: Never used Substance Use Topics - Alcohol use: Not Currently - Drug use: Never ALLERGIES: Patient has no known allergies. CURRENT MEDICATIONS: Current Outpatient Medications Medication Sig - dofetilide (TIKOSYN) 500 mcg capsule Take 1 capsule by mouth twice daily. - latanoprost (XALATAN) 0.005 % ophthalmic solution Use 1 Drop in both eyes daily at bedtime. - metoprolol tartrate, short acting, (LOPRESSOR) 50 mg tablet TAKE 1 TABLET TWICE A DAY WITH MEALS - atorvastatin (LIPITOR) 10 mg tablet TAKE 1 TABLET DAILY - finasteride (PROSCAR) 5 mg tablet Take 1 tablet by mouth once daily. No current facility-administered medications for this visit. Review of Systems Constitutional: Negative for activity change and fever. Respiratory: Negative for apnea, cough, chest tightness, shortness of breath, wheezing and stridor. Cardiovascular: Negative for chest pain, palpitations and leg swelling. Gastrointestinal: Negative for abdominal distention, diarrhea and vomiting. Musculoskeletal: Negative for joint swelling, neck pain and neck stiffness. Skin: Negative for color change, pallor and rash. Neurological: Negative for dizziness, syncope, weakness, light-headedness and numbness. Hematological: Does not bruise/bleed easily. Psychiatric/Behavioral: Negative for agitation, behavioral problems and confusion. The patient is not nervous/anxious. All other systems reviewed and are negative. PHYSICAL EXAMINATION: 11/23/21 1123 BP: 102/72 BP Position: Sitting Pulse: 75 Weight: 80.7 kg (178 lb) Height: 172.7 cm (5' 8 ) Last 3 Encounter BP Readings: Date: BP: 06/07/2021 102/58 06/02/2021 119/61 05/17/2021 108/72 Last 3 Encounter Pulse Readings: Date: Pulse: 06/07/2021 78 06/02/2021 75 05/17/2021 74 Last 3 Encounter Wt Readings: Date: Wt: 06/07/2021 88.4 kg (194 lb 12.8 oz) 05/17/2021 90.3 kg (199 lb) 11/02/2020 94.8 kg (209 lb) Physical Exam Vitals and nursing note reviewed. Constitutional: General: He is not in acute distress. Appearance: Normal appearance. He is not toxic-appearing. HENT: Head: Normocephalic and atraumatic. Nose: Nose normal. Mouth/Throat: Mouth: Mucous membranes are moist. Neck: Vascular: No carotid bruit. Cardiovascular: Rate and Rhythm: Normal rate and regular rhythm. Pulses: Normal pulses. Heart sounds: Normal heart sounds. No murmur heard. No friction rub. No gallop. Pulmonary: Effort: Pulmonary effort is normal. No respiratory distress. Breath sounds: Normal breath soun (more content not included)... [facility] 11-23-2021 Note HNO ID: [id number] Author: Vijay Candelario MD Service: ? Author Type: Physician Type: Progress Notes Filed: 12/18/2021 8:17 PM Note Text: DUAL ICD Report In Office Check Date: November 23, 2021 Time: 10:46 AM Devices: Implants Defibrillator Dual Icd [employer]-12/07/2016 - Implanted (Left) Chest Wall Model/Cat number: YOUNG ORTIZ DR ICD D153 Serial number: [id number] Rope Cleaner: [employer] Lot number: THIRD DUAL ICD IMPLANT. Size: 1? Prevention SCD; Non-Ischemic CM; No inducible VT at EP study; As of 11/23/2021 Status: Implanted Lead Ra Lead Guidant-04/07/2004 - Implanted Heart Model/Cat number: FINELINE II EZ STEROX 4471-58 Serial number: [id number] Rope Cleaner: [employer] Lot number: LEFT CEPHALIC VEIN Size: Right Atrial Pacing Lead As of 10/08/2019 Status: Implanted Rv Icd Lead Guidant-04/07/2004 - Implanted Heart Model/Cat number: ENDOTAK RELIANCE G 0185-64 Serial number: [id number] Rope Cleaner: [employer] Lot number: LEFT CEPHALIC VEIN Size: Right Ventricular ICD Lead As of 10/08/2019 Status: Implanted Symptoms: None Underlying Rhythm: Normal Sinus Rhythm Last Interrogation Date: 05-17-2021 Estimated Remaining Longevity: 9.5 yrs until RAMONE Last Capacitor Reform: 11-14-2021 Charge time: 11.3 seconds High Voltage Impedance: 47 ohm Dependency: No Interrogation Performed by: Megan Damico LPN Programming Parameters Mode: DDDR Lower Rate: 75 Upper Track: 145 Upper Sensor: 130 Paced AV Delay: 150 Sensed AV Delay: 150 Atrial Refractory: 260 Mode Switch: 170 Atrial: Threshold: 1.0 V @ 0.2 msec Programmed amp/PW: 1.0 V @ 0.6 msec P wave: 2.8 mV Sensitivity: 0.25 mV Impedance: 425 ohm Pacing percent: 96% Right Ventricle: Threshold: 0.9 V @ 0.2 msec Programmed amp/PW: 1.0 V @ 0.6 msec R wave: 25.0 mV Sensitivity: 0.6 mV Impedance: 796 ohm RV pacin% Episodes: Atrial Fib count: 0 Atrial burden: 0 Mode Switch episodes: 0 Atrial ATP episode: 0 Ventricular ATP episodes: 0 Ventricular Fibrillation count: 0 Fast Ventricular Tachycardia count: 0 Slow Ventricular Tachycardia: 0 NSVT: 1 SUMMARY: Normal device function. Normal pacing and sensing thresholds. Battery: 9.5 yrs until RAMONE. Atrial episodes: none. Ventricular episodes: 1 NSVT. Histogram: ok. Changes: per threshold testing. Follow up: 3 month remote, 6 months device check and provider appointment. View External Cardiology - Mannequin Coloring Artist Strips [ID [id number]] [facility] 11-23-2021 History of Presen t illness Narrative [facility] Estelita Starr MD SUBJECTIVE: Srikanth Goddard is a 81 year old male who is here today for a follow up visit. The patient is doing well from the cardiovascular standpoint. He denies chest pain, shortness of breath, palpitations, PND, orthopnea, syncope, near-syncope, or edema. PAST MEDICAL HISTORY Diagnosis Date Benign hypertension CAD (coronary artery disease) Chronic systolic heart failure (HCC) CKD (chronic kidney disease) Dilated cardiomyopathy (HCC) LV dysfunction pre-dated CAD Glaucoma H/O echocardiogram 04/05/2017 EF 40%, mild MR, aortic sclerosis and mild AR, mild MR, mild TR, LVH H/O heart artery stent PCI/BMS to the 1st OM of CX by Dr Hills at [facility] History of cardiac cath 07/25/2016 LM normal, RCA normal, 70% OM lesion, EF 30-35% by cardiac cath done at [facility] by Dr Napier History of stress test 07/04/2016 EF 49%, no ischemia ICD (implantable cardioverter-defibrillator) in place 04/07/2004 Dual ICD implanted by Dr Candelario, [employer] [employer] Implantable cardioverter-defibrillator (ICD) generator end of life 08/29/2009 Dual ICD gen change at [facility] by Dr Candelario, [employer] Implantable cardioverter-defibrillator (ICD) generator end of life 12/07/2016 Dual ICD gen change at [facility] by Dr Candelario, [employer] IVCD (intraventricular conduction defect) Mixed hyperlipidemia PAF (paroxysmal atrial fibrillation) (HCC) Sinus node dysfunction (HCC) VT (ventricular tachycardia) (HCC) Failed Sotalol. 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 Right 06/10/2021 Dr Sylvester AVASTIN (BEVACIZUMAB) 1.25MG INTRAVITREAL INJECTION OS (LEFT EYE) Left 06/17/2021 x 2 CATARACT EXTRACTION W/ INTRAOCULAR LENS IMPLANT HX Bilateral HEMIARTHROPLASTY HIP PARTIAL Bilateral PAST SURGICAL HISTORY OF 12/07/2016 ICD gen change PAST SURGICAL HISTORY OF 07/25/2016 s/p pci PAST SURGICAL HISTORY OF 2003 dual ICD PAST SURGICAL HISTORY OF 2009 dual ICD gen change [employer] FAMILY HISTORY Adopted: Yes SOCIAL HISTORY: Social History Tobacco Use Smoking status: Never Smoker Smokeless tobacco: Never Used Vaping Use Vaping Use: Never used Substance Use Topics Alcohol use: Not Currently Drug use: Never ALLERGIES: Patient has no known allergies. CURRENT MEDICATIONS: Current Outpatient Medications Medication Sig dofetilide (TIKOSYN) 500 mcg capsule Take 1 capsule by mouth twice daily. latanoprost (XALATAN) 0.005 % ophthalmic solution Use 1 Drop in both eyes daily at bedtime. metoprolol tartrate, short acting, (LOPRESSOR) 50 mg tablet TAKE 1 TABLET TWICE A DAY WITH MEALS atorvastatin (LIPITOR) 10 mg tablet TAKE 1 TABLET DAILY finasteride (PROSCAR) 5 mg tablet Take 1 tablet by mouth once daily. No current facility-administered medications for this visit. Review of Systems Constitutional: Negative for activity change and fever. Respiratory: Negative for apnea, cough, chest tightness, shortness of breath, wheezing and stridor. Cardiovascular: Negative for chest pain, palpitations and leg swelling. Gastrointestinal: Negative for abdominal distention, diarrhea and vomiting. Musculoskeletal: Negative for joint swelling, neck pain and neck stiffness. Skin: Negative for color change, pallor and rash. Neurological: Negative for dizziness, syncope, weakness, light-headedness and numbness. Hematological: Does not bruise/bleed easily. Psychiatric/Behavioral: Negative for agitation, behavioral problems and confusion. The patient is not nervous/anxious. All other systems reviewed and are negative. PHYSICAL EXAMINATION: 11/23/21 1123 BP: 102/72 BP Position: Sitting Pulse: 75 Weight: 80.7 kg (178 lb) Height: 172.7 cm (5' 8 ) Last 3 Encounter BP Readings: Date: BP: 06/07/2021 102/58 06/02/2021 119/61 05/17/2021 108/72 Last 3 Encounter Pulse Readings: Date: Pulse: 06/07/2021 78 06/02/2021 75 05/17/2021 74 Last 3 Encounter Wt Readings: Date: Wt: 06/07/2021 88.4 kg (194 lb 12.8 oz) 05/17/2021 90.3 kg (199 lb) 11/02/2020 94.8 kg (209 lb) Physical Exam Vitals and nursing note reviewed. Constitutional: General: He is not in acute distress. Appearance: Normal appearance. He is not toxic-appearing. HENT: Head: Normocephalic and atraumatic. Nose: Nose normal. Mouth/Throat: Mouth: Mucous membranes are moist. Neck: Vascular: No carotid bruit. Cardiovascular: Rate and Rhythm: Normal rate and regular rhythm. Pulses: Normal pulses. Heart sounds: Normal heart sounds. No murmur heard. No friction rub. No gallop. Pulmonary: Effort: Pulmonary effort is normal. No respiratory distress. Breath sounds: Normal breath sounds. No stridor. No wheezing, rhonchi or rales. Chest: Chest wall: No tenderness. Abdominal: General: Abdomen is flat. There is no distension. Palpations: Abdomen is soft. There is no mass. Tenderness: There is no abdominal tenderness. Musculoskeletal: General: No swelling. Cervical back: Normal range of motion. No muscular tenderness. Right lower leg: No edema. Left lower leg: No edema. Skin: Coloration: Skin is not jaundiced or pale. Findings: No bruising or rash. Neurological: General: No focal deficit present. Mental Status: He is alert and oriented to person, place, and time. Mental status is at baseline. Motor: No weakness. Gait: Gait normal. Psychiatric: Mood and Affect: Mood normal. Behavior: Behavior normal. Diagnostic results: ICD check: SUMMARY: Comment: Normal device function. Battery: 9.5 yrs until RAMONE. Atrial episodes: none. Ventricular episodes: 1 NSVT. Normal pacing and sensing thresholds. Histogram: ok. Changes: per threshold testing. EKG: Normal sinus rhythm, 75 beats minute, a paced-V sensed ASSESSMENT/PLAN: 1. Benign hypertension - ICD9: 401.1, ICD10: I10 Target BP 130/80 or less. The pt is on chronic medications. Blood pressure well controlled on current medications. 2. Coronary artery disease involving [place] coronary artery of [place] heart without angina pectoris - ICD9: 414.01, ICD10: I25.10 Bare-metal stent-first OM of circumflex in 2017. Patient on chronic medication. He is not complaining of chest pain. 3. Mixed hyperlipidemia - ICD9: 272.2, ICD10: E78.2 Patient is on Lipitor 10 mg qd. Managed by primary care physician. 4. Dilated cardiomyopathy (HCC) - ICD9: 425.4, ICD10: I42.0 Chronic, the patient has an ICD. Stable. 5. Chronic systolic heart failure (HCC) - ICD9: 428.22, ICD10: I50.22 Chronic, [place] Heart Association class I. The patient is on chronic medications. The patient was instructed to call with any change in symptoms. He had no modified status) often he had 6. ICD (implantable cardioverter-defibrillator) in place - ICD9: V45.02, ICD10: Z95.810 The patient has a dual chamber ICD. Normal function by today's interrogation. We will plan to interrogate the patient's defibrillator every 3 months and p.r.n. 7. Sinus node dysfunction (HCC) - ICD9: 427.81, ICD10: I49.5 Chronic, the patient has dual-chamber ICD. Stable. 8. PAF (paroxysmal atrial fibrillation) ([facility]) - ICD9: 427.31, ICD10: I48.0 Failed sotalol for ventricular tachycardia. Presently on Tikosyn 500 mcg p.o. every 12 hours. Maintaining sinus rhythm. We will plan to continue same medications and monitor for recurrent A. fib. 9. VT (ventricular tachycardia) ([facility]) - ICD9: 427.1, ICD10: I47.2 Failed sotalol for ventricular tachycardia. Patient present on Tikosyn 500 mcg p.o. every 12 hours. He is maintaining sinus rhythm by ICD interrogation. We will plan to continue same medications and monitor for recurrent VT. Isis Caballero APRN.ART HISTORY PROFESSOR documented in this encounter [facility] 11-23-2021 Miscellaneous Notes Addended by: ISIS CABALLERO on: 11/23/2021 11:34 AM Modules accepted: Orders documented in this encounter [facility] 09-23-2021 Miscellaneous Notes Pharmacy faxes requesting refill: Pending Prescriptions Disp Refills DOFETILIDE 500 MCG CAPSULE 180 capsule 0 Sig: TAKE 1 CAPSULE TWICE A DAY KRIS: Yes Date of last visit:11/02/2020 Phone #: [phone] (home) [phone] (cell) The patients preferred pharmacy has been captured for this encounter? yes documented in this encounter [facility] 09-03-2021 Note HNO ID: [id number] Author: Moni Sylvester MD Service: ? Author Type: Physician Type: Progress Notes Filed: 09/03/2021 12:42 PM Note Text: Tmax: 31 per patient, ?; Pachy: 515, 503 Lasers and Surgeries: OD: 06/10/21 Xen ab externo (IOP=26 on 5) Summer 2020 SLT for IOP 19-21 (Dr. Harris) ~2019 [facility] OS: Summer 2020 SLT for IOP 19-21 (Dr. Harris) ~2019 [facility] Ocular Medication Intol and Non-efficacy: Combigan=contact dermatitis Referred by Dr. Harris Now on cosopt bid OS (from Arely 05/2021 for allergy) latanoprost qhs OS (started about 05/27/21) POAG severe OU -HVF low vision -OCT 05/2021 OD Large disc, sig diffuse thinning OS very large disc, inf>sup Thinning -Diagnosed per patient Dr. Steven Baxter early 01/2021 -on ASA -PO 12w 1d s/p Xen ab externo OD 06/10/21 -IOP is not low enough -add latanoprost OD -OS: IOP not ideal. Ran out of Rocklatan -recommend tube (ACP 350) when he's able/ready BRVO OS Avastin x2 OS 06/17/21 -Dr. 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 Moni Sylvester 09/03/2021 11:22 AM I have confirmed and edited as necessary the relevant ophthalmic history, ROS, and the neuro exam findings as obtained by others. I have seen and examined Srikanth Gan Rupesh. I have discussed the case and the management of this patient's care with the Resident/Fellow, if applicable. I also have reviewed and agree with the assessment and plan as stated above and agree with all of its relevant components. I, Moni Sylvester MD, personally performed the services described in this documentation. All medical record entries made by the scribe were at my direction and in my presence. I have reviewed the chart and discharge instructions (if applicable) and agree that the record reflects my personal performance and is accurate and complete. Electronically Signed: Moni Sylvester MD, September 03, 2021 12:31 PM. [facility] 09-03-2021 Instructions Allison Smith - 09/03/2021 12:35 PM EDT Images from the original note were not included. If you have questions, my office phone number is [phone]. What is an Ahmed ClearPath tube-shunt? A ClearPath tube-shunt is a glaucoma drainage device that is surgically implanted to lower the pressure within the eye (intraocular pressure) for the treatment of glaucoma. It consists of a tube attached to a plate (Figure 1), which allows fluid to drain from the inside of the eye to the outside layers of the eye. The tube and plate are covered by your own tissues and by donor tissue. The tube is permanent and successfully lowers the eye pressure in most people who have one. Figure 1. Ahmed ClearPath Tube-shunt (A=250 sq. mm. implant, B= 350mm implant which is used more commonly) Why is this device implanted? A glaucoma tube-shunt is implanted when glaucoma eye drops (and sometimes laser treatments) have failed to effectively lower the intraocular pressure. The main goal of the implant is to allow fluid to leave the eye so that the intraocular pressure will decrease and, therefore, prevent further vision loss from glaucoma. How is the procedure done? Before the day of surgery You will have a brief physical examination that may include an electrocardiogram (a heart tracing) and blood work. This will be scheduled for you. If you are having cataract surgery at the same time, measurements of your eyes will be taken for calculating the correct power lens implant. Preparing for surgery On the day of surgery you will go to the surgical suite on the first floor of [facility]. You will check in at the desk and the nurses will take you into the pre-op area. The nurse will begin an intravenous (IV) line in one of your veins. Medication is given through the IV that will make you feel quite relaxed; in fact you will probably fall asleep for a few minutes. While you are asleep we will give you an injection of numbing medicine near your eye (local anesthesia). You will then wake up and will be partially awake but relaxed through the entire procedure. You will hear us talking but shouldn t feel any pain. You will be encouraged to let us know if you are feeling anxiety, pain, or any other discomfort so we can work to keep you comfortable. In rare cases, we may put you totally asleep (general anesthesia) if you have claustrophobia or are very nervous about being awake during surgery. Usually, being awake is preferable because it is less stressful for the body than general anesthesia and the recovery is much quicker. Once the eye is numb, the entire area around the eye is carefully cleaned with a special soap. Drapes are placed over your face leaving the operative eye exposed (you won t be able to see much out of that eye due to the numbing medicine). Plenty of oxygen will be flowing underneath the drape and the anesthesiologist will be constantly monitoring the amount of air that you have to breathe, as well as your heart rhythm and blood pressure. If you are on blood thinners, it is generally ok to continue taking these medications, but do let your eye surgeon know. Although blood thinners can raise the risk of bleeding during or after surgery, in general we ask you stay on them to avoid blood clots that could cause you to have a heart attack or stroke. The surgery The operation is done with you lying on your back. We are looking through a microscope that is suspended over your face. The figure below shows a sketch of a tube surgery. We use a special speculum to help you hold your eyelids open. We then make an incision in the conjunctiva, a clear, thin tissue that coats the surface of the white of the eye. Figure 2 A) The tube-shunt is placed under the surface tissue of the eye (conjunctiva). It is sutured into place. B) A patch graft of human sclera or cornea covers the tube. This may be visible as a fleshy or white fullness once the blood clears. The plate is fastened to the sclera, which is the white of the eye (Figure 2A). The tube is inserted in front of the iris, which is the colored part of the eye. A small piece of donor cornea (clear) or sclera (white) is then placed over the tube (Figure 2B). We use this tissue because it is very tough and very well tolerated. The conjunctiva is then put back into place to cover everything. How long is the surgery? The surgery usually takes about 40 to 60 min. When the surgery is completed we will placed some ointment in the eye and may put a patch over the eye. What do I do after surgery? If you have a patch there is nothing for you to do the day of surgery except continue any medications in your other (non-operative) eye. You should leave the patch in place. We want you to maintain a fairly normal level of activity but refrain from bending with your head below your heart, lifting more than 10-15 lbs., or straining. If you tend to be constipated it is good to take a stool softener to keep from straining on the toilet. Most eyes are very comfortable after surgery. Slight scratching from the sutures is common, but these sutures will dissolve. If you have discomfort you should take acetaminophen (Tylenol) and non-steroidal anti-inflammatory (NSAIDS) pain medicines such as ibuprofen or Aleve. What to expect after implant surgery The tube is tied off with a dissolvable suture to disable it for the early post-operative period. The suture dissolves spontaneously in about five to six weeks. By that time, a fibrous tissue will have formed over the plate creating resistance to fluid leaving the eye and preventing the pressure from dropping too low. You will likely be on some or all of your current glaucoma medications until the tube opens. When the tube opens you may have blurry vision and floaters. This is a normal phenomenon and will clear up within a few days. Once the tube is open, some of your glaucoma eye drops may gradually be discontinued. However, most people with tube implants will need some eye drops to help the tube control their pressure in the long run. Postoperatively, you will be unable to see the tube in your eye because it is small and clear. We can see it easily during your examination (Figure 4). FIGURE 4. Tube in front of the iris inside the eye You may, however, notice a small white or clear fullness underneath your eyelid after the blood and inflammation have cleared (Figure 5). This is the donor tissue that is overlying your tube. FIGURE 5. Tissue covering tube The day after surgery On the morning after the surgery we will remove your patch, check your vision, check your pressure, and tube implant. You should expect your vision to be somewhat blurry for a while after surgery. We will then begin you on steroid and antibiotic eye drops, listed below. Medications You will probably be given prednisolone acetate to be used 4 times a day while you are awake. This is a steroid drop that helps to prevent the eye from scarring shut the new drainage bleb that was just created. This will be gradually weaned as the eye heals. It is best to pick this medication up before surgery; the prescription should have been sent to your pharmacy. An antibiotic drop such as ofloxacin, is also used four times a day when you are awake. Typically this drop will be stopped after 7 days. We will give you this medication on the day of surgery. Eye protection The surgery is delicate, so you need to be gentle with the eye for the first few weeks. We want you to keep your eye protected at all times during the first three weeks after surgery. You can wear glasses or sunglasses during the daytime and wear the metal shield that we provide at bedtime. Postoperative concerns The surgery is delicate, so you need to be gentle with the eye for the first few week or two. We want you to keep your eye protected at all times during the first week after surgery. You can wear glasses or sunglasses during the daytime and wear the metal shield that we provide at bedtime. What do the postoperative visits consist of? We measure your vision and eye pressure and make sure the eye is healing appropriately. We will discuss any adjustments in your medications. The eye pressure may be good, too high, or too low right after surgery. Over time we try to coax the healing process to produce a well-controlled eye pressure for you. What if the tube surgery fails? Some patients feel that surgery is the last resort and that, if it fails, they are out of options. This is certainly not true. Other glaucoma surgeries are available that can work even after tube implant fails. Are there any long-term lifestyle adjustments? Most people after a tube shunt lead a life that is no different than it was before the surgery. However, there are a few things for you to be aware of over the terminal operations supervisor. First, and most important, people with tube implants should always avoid eye rubbing as it can cause the implant to damage the eye. If you ever get an eye infection or redness, discharge, or pain in the eye, it is important for you to be examined very soon by an eye doctor. Swimming Patients who have tube surgeries should not swim with their eyes open under water. Water in lakes and pools is not especially clean, and if you get an infection in your eye it can be very serious. Patients who must swim with their head in the water should wear goggles. Contact lenses We discourage people with tube implants from wearing contact lenses, especially soft contact lenses, after tube shunt placement. For people who need contact lenses, rigid gas permeable lenses are an option and should be fitted by an office assistant with a knowledge of fitting contact lenses in eyes with tube implants. Are there any other complications? The most common problem is eye pressure not as low as we want it to be. Although high eye pressure commonly improves during the healing process, sometimes it can stay high. Much less commonly, the pressure go too low and stay too low. If the pressure stays too high, or if it is low causing blurring of the vision, additional measures will be required to increase the pressure. There is an increased risk of developing a cataract in the eye after surgery if you haven t already had cataract surgery. There is a small risk of damage to the cornea after years of having a tube, but often this can be caught early and repaired. After any eye surgery the eyelid can become droopier, or you may experience double vision. Serious complications are uncommon and consist of bleeding, infection, and detached retina. With an operation in the eye there is always a very small but real risk of losing all of the vision or the eye itself. Adapted from educational material developed by Josue Esteves MD, of [facility]. documented in this encounter [facility] 09-03-2021 History of Presen t illness Narrative Tmax: 31 per patient, ?; Pachy: 515, 503 Lasers and Surgeries: OD: 06/10/21 Xen ab externo (IOP=26 on 5) Summer 2020 SLT for IOP 19-21 (Dr. Harris) ~2019 [facility] OS: Summer 2020 SLT for IOP 19-21 (Dr. Harris) ~2019 [facility] Ocular Medication Intol and Non-efficacy: Combigan=contact dermatitis Referred by Dr. Harris Now on cosopt bid OS (from Arely 05/2021 for allergy) latanoprost qhs OS (started about 05/27/21) POAG severe OU -HVF low vision -OCT 05/2021 OD Large disc, sig diffuse thinning OS very large disc, inf>sup Thinning -Diagnosed per patient Dr. Steven Baxter early 01/2021 -on ASA -PO 12w 1d s/p Xen ab externo OD 06/10/21 -IOP is not low enough -add latanoprost OD -OS: IOP not ideal. Ran out of Rocklatan -recommend tube (ACP 350) when he's able/ready BRVO OS Avastin x2 OS 06/17/21 -Dr. 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 Moni Sylvester 09/03/2021 11:22 AM I have confirmed and edited as necessary the relevant ophthalmic history, ROS, and the neuro exam findings as obtained by others. I have seen and examined Srikanth Goddard. I have discussed the case and the management of this patient's care with the Resident/Fellow, if applicable. I also have reviewed and agree with the assessment and plan as stated above and agree with all of its relevant components. I, Moni Sylvester MD, personally performed the services described in this documentation. All medical record entries made by the scribe were at my direction and in my presence. I have reviewed the chart and discharge instructions (if applicable) and agree that the record reflects my personal performance and is accurate and complete. Electronically Signed: Moni Sylvester MD, September 03, 2021 12:31 PM. documented in this encounter [facility] 08-18-2021 Note HNO ID: [id number] Author: Vijay Candelario MD Service: ? Author Type: Physician Type: Progress Notes Filed: 08/22/2021 5:30 PM Note Text: DUAL ICD REMOTE CHECK Date: August 18, 2021 Time: 3:15 PM Devices: Implants Defibrillator Dual Icd [employer]-12/07/2016 - Implanted (Left) Chest Wall Model/Cat number: YOUNG ORTIZ DR ICD D153 Serial number: [id number] Rope Cleaner: [employer] Lot number: THIRD ICD Size: 1? Prevention SCD; Non-Ischemic CM; No inducible VT at EP study; As of 08/18/2021 Status: Implanted Lead Ra Lead Guidant-04/07/2004 - Implanted Heart Model/Cat number: FINELINE II EZ STEROX 4471-58 Serial number: [id number] Rope Cleaner: GUIDANT Lot number: LEFT CEPHALIC VEIN Size: Right Atrial Pacing Lead As of 10/08/2019 Status: Implanted Rv Icd Lead Guidant-04/07/2004 - Implanted Heart Model/Cat number: ENDOTAK RELIANCE G 0185-64 Serial number: [id number] Rope Cleaner: GUIDANT Lot number: LEFT CEPHALIC VEIN Size: Right Ventricular ICD Lead As of 10/08/2019 Status: Implanted Last Interrogation Date: 05-17-2021 Estimated Remaining Longevity: 9.5 yrs until RAMONE Last Capacitor Reform: 12-20-2021 Charge time: 11.1 seconds High Voltage Impedance: 42 ohms Interrogation Performed by: Megan Damico LPN Programming Parameters Mode: DDDR Lower Rate: 75 Upper Track: 145 Upper Sensor: 130 Paced AV Delay: 150 Sensed AV Delay: 150 Atrial Refractory: 260 Mode Switch: 170 Atrial: Threshold: n/a Programmed amp/PW: 1.1 V @ 0.6 msec P wave: 4.3 mV Sensitivity: 0.25 mV Impedance: 420 ohms Pacing percent: 97% Right Ventricle: Threshold: n/a Programmed amp/PW: 1.0 V @ 0.6 msec R wave: 25.0 mV Sensitivity: 0.6 mV Impedance: 783 ohms RV pacin% Episodes: Atrial Fib count: 0 Atrial burden: 0 Mode Switch episodes: 0 Atrial ATP episode: 0 Ventricular ATP episodes: 0 Ventricular Fibrillation count: 0 Fast Ventricular Tachycardia count: 0 Slow Ventricular Tachycardia: 0 NSVT: 1 SUMMARY: Normal device function. Normal pacing and sensing thresholds. Battery: 9.5 yrs until RAMONE. Atrial episodes: none. Ventricular episodes: 1 NSVT. Histogram: ok. Follow up: 3 months device check and provider appointment. View External Cardiology - Programming Strips [ID [id number]] [facility] 07-20-2021 Note HNO ID: [id number] Author: Moni Sylvester MD Service: ? Author Type: Physician Type: Progress Notes Filed: 07/20/2021 11:29 AM Note Text: The historical information in this note was updated 07/16/21 based on a letter from Dr. Harris ? Tmax: 31 per patient, ?; Pachy: 515, 503 Lasers and Surgeries: OD: 06/10/21 Xen ab externo (IOP=26 on 5) Summer 2020 SLT for IOP 19-21 (Dr. Harris) ~2019 [facility] OS: Summer 2020 SLT for IOP 19-21 (Dr. Harris) ~2019 [facility] Ocular Medication Intol and Non-efficacy: Arely Referred by Dr. Harris Now on Timolol bid OS (from Arely 05/2021 for allergy) Dorzolamide bid OS Rocklatan qhs OS (started about 05/27/21) ran out PF qid OD POAG severe OU Contact dermatitis OU - likely from Arely [facility] low vision -OCT 05/2021 OD Large disc, sig diffuse thinning OS very large disc, inf>sup Thinning -Diagnosed per patient Dr. Steven Baxter early 01/2021 -on ASA -contact dermatitis resolved OD off combigan: tried changing combigan to timolol OS: IOP unchanged, dermatits improved -PO 5w 5d s/p Xen ab externo OD 06/10/21 -IOP is marginal -try tapering off PF: 3-2-1-0 -can add back drops PRN -OS: IOP not ideal. Ran out of Rocklatan -try Cosopt + latanoprost -consider surgery BRVO OS Avastin x2 OS 06/17/21 -Dr. 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 Moni Sylvester 07/20/2021 I have confirmed and edited as necessary the relevant ophthalmic history, ROS, and the neuro exam findings as obtained by others. I have seen and examined Srikanth Goddard. I have discussed the case and the management of this patient's care with the Resident/Fellow, if applicable. I also have reviewed and agree with the assessment and plan as stated above and agree with all of its relevant components. I, Moni Sylvester MD, personally performed the services described in this documentation. All medical record entries made by the scribe were at my direction and in my presence. I have reviewed the chart and discharge instructions (if applicable) and agree that the record reflects my personal performance and is accurate and complete. Electronically Signed: Moni Sylvester MD, July 20, 2021 11:24 AM. [facility] 06-30-2021 Note HNO ID: [id number] Author: Moni Sylvester MD Service: ? Author Type: Physician Type: Progress Notes Filed: 07/16/2021 12:16 PM Note Text: The historical information in this note was updated 07/16/21 based on a letter from Dr. Harris Tmax: 31 per patient, ?; Pachy: 515, 503 Lasers and Surgeries: OD: 06/10/21 Xen ab externo (IOP=26 on 5) Summer 2020 SLT for IOP 19-21 (Dr. Harris) ~2019 [facility] OS: Summer 2020 SLT for IOP 19-21 (Dr. Harris) ~2019 [facility] Ocular Medication Intol and Non-efficacy: Combigan Referred by Dr. Harris Now on Timolol bid OS (from [facility] 05/2021 for allergy) Dorzolamide bid OS Rocklatan qhs OS (started about 05/27/21) Durezol qid OD POAG severe OU Contact dermatitis OU - likely from Combigan -HVF low vision -OCT 05/2021 OD Large disc, sig diffuse thinning OS very large disc, inf>sup Thinning -Diagnosed per patient Dr. Steven Baxter early 01/2021 -on ASA -contact dermatitis resolved OD off combigan: tried changing combigan to timolol OS: IOP unchanged, dermatits improved -PO 2w 6d s/p Xen ab externo OD 06/10/21 -IOP has improved and is great -when durezol runs out, change to PF qid BRVO OS Avastin x2 OS 06/17/21 -Dr. 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 Moni Sylvester 06/30/2021 I have confirmed and edited as necessary the relevant ophthalmic history, ROS, and the neuro exam findings as obtained by others. I have seen and examined Srikanth Gan Rupesh. I have discussed the case and the management of this patient's care with the Resident/Fellow, if applicable. I also have reviewed and agree with the assessment and plan as stated above and agree with all of its relevant components. I, Moni Sylvester MD, personally performed the services described in this documentation. All medical record entries made by the scribe were at my direction and in my presence. I have reviewed the chart and discharge instructions (if applicable) and agree that the record reflects my personal performance and is accurate and complete. Electronically Signed: Moni Sylvester MD, June 30, 2021 11:55 AM. [facility] 06-22-2021 Note HNO ID: [id number] Author: Moni Sylvester MD Service: ? Author Type: Physician Type: Progress Notes Filed: 06/22/2021 4:06 PM Note Text: Tmax: 31 per patient, ?; Pachy: 515, 503 Lasers and Surgeries: OD: 06/10/21 Xen ab externo (IOP=26 on 5) 2020 laser for IOP ~2019 [facility] OS: 2020 laser for IOP ~2019 [facility] Ocular Medication Intol and Non-efficacy: - Referred by Dr. Harris Now on Combigan bid OS Dorzolamide bid OS Rocklatan qhs OS (started about 05/27/21) Durezol qid OD Oflox qid OD POAG severe OU Contact dermatitis OU - likely from Combigan -HVF low vision -OCT 05/2021 OD Large disc, sig diffuse thinning OS very large disc, inf>sup Thinning -Diagnosed per patient Dr. Steven Baxter early 01/2021 -on ASA -contact dermatitis resolved OD off combigan: try changing combigan to timolol OS -PO 1w 5d s/p Xen ab externo OD 06/10/21 -stop Oflox -IOP not ideal @ 17 -will follow and likely add back meds next visit Avastin x2 OS 06/17/21 -for hemorrhage -DrHiro ? By signing my name below, I, Allison Smith, attest that this documentation has been prepared under the direction and in the presence of Dr. Moni Sylvester 06/22/2021 I have confirmed and edited as necessary the relevant ophthalmic history, ROS, and the neuro exam findings as obtained by others. I have seen and examined Srikanth Goddard. I have discussed the case and the management of this patient's care with the Resident/Fellow, if applicable. I also have reviewed and agree with the assessment and plan as stated above and agree with all of its relevant components. I, Moni Sylvester MD, personally performed the services described in this documentation. All medical record entries made by the scribe were at my direction and in my presence. I have reviewed the chart and discharge instructions (if applicable) and agree that the record reflects my personal performance and is accurate and complete. Electronically Signed: Moni Sylvester MD, June 22, 2021 3:59 PM. [facility] 11-27-2020 Evaluation + Plan note Future Scheduled TestsComplete Blood Count 11/27/20Lipid Profile 11/27/20Complete Metabolic Panel 11/27/20XR Chest 2 Views (PA & Lateral) 06/21/21 [facility] Evaluation + Plan note Future Appointments Appointment Date:01/03/2022 10:30:00 AM Scheduled Provider:MARYAN TESFAYE DO Location:[facility] Appointment Type:PC OV Future Scheduled TestsBasic Metabolic Panel 11/23/21Complete Blood Count 11/27/20Lipid Profile 11/27/20Complete Metabolic Panel 11/27/20XR Chest 2 Views (PA & Lateral) 06/21/21 [facility] Evaluation + Plan note Future Appointments Appointment Date:01/03/2022 10:30:00 AM Scheduled Provider:MARYAN TESFAYE DO Location:[facility] Appointment Type:PC OV Future Scheduled TestsComplete Blood Count 11/27/20Lipid Profile 11/27/20Complete Metabolic Panel 11/27/20XR Chest 2 Views (PA & Lateral) 06/21/21 [facility] Evaluation + Plan note Future Appointments Appointment Date:12/07/2021 11:30:00 AM Scheduled Provider:MARYAN TESFAYE DO Location:[facility] Appointment Type:PC OV Appointment Date:01/03/2022 10:30:00 AM Scheduled Provider:MARYAN TESFAYE DO Location:[facility] Appointment Type:PC OV Future Scheduled TestsBasic Metabolic Panel 11/26/21XR Chest 2 Views (PA & Lateral) 06/21/21 [facility] Evaluation + Plan note Future Appointments Appointment Date:12/07/2021 11:30:00 AM Scheduled Provider:MARYAN TESFAYE DO Location:[facility] Appointment Type:PC OV Appointment Date:01/03/2022 10:30:00 AM Scheduled Provider:MARYAN TESFAYE DO Location:[facility] Appointment Type:PC OV Future Scheduled TestsXR Chest 2 Views (PA & Lateral) 06/21/21 [facility] Evaluation + Plan note Future Appointments Appointment Date:03/03/2023 10:30:00 AM Scheduled Provider:MARYAN TESFAYE DO Location:[facility] Appointment Type:PC OV Future Scheduled TestsBasic Metabolic Panel 03/04/23Albumin/Creatinine Ratio, Random Urine 09/02/22 [facility] Evaluation + Plan note Future Appointments Appointment Date:03/03/2023 10:30:00 AM Scheduled Provider:MARYAN TESFAYE DO Location:[facility] Appointment Type:PC OV Future Scheduled TestsBasic Metabolic Panel 03/04/23Basic Metabolic Panel 09/09/22 [facility] Diagnosis PAF (paroxysmal atrial fibrillation) ([facility]) Atrial fibrillation [facility] this [facility] [place] [facility]* Diagnosis Benign hypertension- Primary Essential hypertension, benign Coronary artery disease involving [place] coronary artery of [place] heart without angina pectoris Mixed hyperlipidemia Dilated cardiomyopathy ([facility]) Other primary cardiomyopathies Chronic systolic heart failure (HCC) Chronic systolic heart failure ICD (implantable cardioverter-defibrillator) in place Automatic implantable cardiac defibrillator in situ Sinus node dysfunction (HCC) Sinoatrial node dysfunction PAF (paroxysmal atrial fibrillation) (HCC) Atrial fibrillation VT (ventricular tachycardia) ([facility]) Paroxysmal ventricular tachycardia documented 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* Diagnosis Benign hypertension- Primary Essential hypertension, benign Coronary artery disease involving [place] coronary artery of [place] heart without angina pectoris Mixed hyperlipidemia Dilated cardiomyopathy (HCC) Other primary cardiomyopathies Chronic systolic heart failure (HCC) Chronic systolic heart failure ICD (implantable cardioverter-defibrillator) in place Automatic implantable cardiac defibrillator in situ PAF (paroxysmal atrial fibrillation) ([facility]) Atrial fibrillation VT (ventricular tachycardia) Paroxysmal ventricular tachycardia Sinus node dysfunction (HCC) Sinoatrial node dysfunction documented 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 [place] [facility]* Diagnosis PAF (paroxysmal atrial fibrillation) (HCC) Atrial fibrillation documented in this encounter [facility] note* Diagnosis Benign hypertension Essential hypertension, benign Coronary artery disease involving [place] coronary artery of [place] heart without angina pectoris Mixed hyperlipidemia Dilated cardiomyopathy (HCC) Other primary cardiomyopathies Chronic systolic heart failure (HCC) Chronic systolic heart failure ICD (implantable cardioverter-defibrillator) in place Automatic implantable cardiac defibrillator in situ VT (ventricular tachycardia) (HCC) Paroxysmal ventricular tachycardia PAF (paroxysmal atrial fibrillation) (HCC) Atrial fibrillation [facility] Narrative No data available for this section [facility] Discharge instructions No data available for this section [facility] Progress note No data available for this section [facility] Reason for referral (narrative)* Outpatient Procedure (Routine) - Closed Specialty Diagnoses / Procedures Referred By Contac t Referred [facility] Diagnoses PAF (paroxysmal atrial fibrillation) ([facility]) Procedures ECG COMPLETE ECG ROUTINE ECG W/LEAST 12 LDS W/I&R Isis Caballero APRN.ART HISTORY PROFESSOR [id number] [facility] [address] [place] [address] [facility] [address] [place] [id number] Referral ID Status Reason Start Date Expiration Date V isits Requested Visits Authorized [id number] Closed Auto-Generate d Referral 12/09/2022 12/09/[address] [facility] Summary Purpose Family History No Family History Records FoundNo Family History Records FoundNo Family History Records FoundNo Family History Records Found Advance Directives No Advanced Directives Records FoundDocuments on File Type Date Recorded Patient Retirement Officer Expl anation Advance Directive(s) 06/16/2021 8:55 AM Advance Directive(s) 06/03/2021 4:50 PM Advance Directive(s) 06/03/2021 4:55 PM Documents on File Type Date Recorded Patient Retirement Officer Expl anation Advance Directive(s) 06/16/2021 8:55 AM Documents on File Type Date Recorded Patient Retirement Officer Expl anation Advance Directive(s) 06/16/2021 8:55 AM Additional Source Comments (unrecognized sect ion and content) No Status Records FoundNo Status Records FoundNo Status Records FoundNo Status Records Found INFORMATION SOURCE (unrecogn ized section and content) DATE CREATED AUTHOR AUTHOR'S ORGANIZ ATION 06/12/2022 [facility] DATE CREATED AUTHOR AUTHOR'S ORGANIZ ATION 09/10/2022 [facility] ([place]) DATE CREATED AUTHOR AUTHOR'S ORGANIZ ATION 04/02/2023 [facility] nter Source Comments (unrecognize d section and content) In the event this informatio n is protected by the Federal Confidentiality of Alcohol and Drug Abuse Patient Records regulations: The Federal rules restrict any use of the information to criminally investigate or prosecute any alcohol or drug abuse patient.[facility] the event this information is protected by the Federal Confidentiality of Alcohol and Drug Abuse Patient Records regulations: The Federal rules restrict any use of the information to criminally investigate or prosecute any alcohol or drug abuse patient.[facility] the event this information is protected by the Federal Confidentiality of Alcohol and Drug Abuse Patient Records regulations: The Federal rules restrict any use of the information to criminally investigate or prosecute any alcohol or drug abuse patient.[facility] the event this information is protected by the Federal Confidentiality of Alcohol and Drug Abuse Patient Records regulations: The Federal rules restrict any use of the information to criminally investigate or prosecute any alcohol or drug abuse patient.[facility] Campus[facility] the event this information is protected by the Federal Confidentiality of Alcohol and Drug Abuse Patient Records regulations: The Federal rules restrict any use of the information to criminally investigate or prosecute any alcohol or drug abuse patient.[facility] CampusIn the event this information is protected by the Federal Confidentiality of Alcohol and Drug Abuse Patient Records regulations: The Federal rules restrict any use of the information to criminally investigate or prosecute any alcohol or drug abuse patient.[facility] the event this information is protected by the Federal Confidentiality of Alcohol and Drug Abuse Patient Records regulations: The Federal rules restrict any use of the information to criminally investigate or prosecute any alcohol or drug abuse patient.[facility] CampusIn the event this information is protected by the Federal Confidentiality of Alcohol and Drug Abuse Patient Records regulations: The Federal rules restrict any use of the information to criminally investigate or prosecute any alcohol or drug abuse patient.[facility] CampusIn the event this information is protected by the Federal Confidentiality of Alcohol and Drug Abuse Patient Records regulations: The Federal rules restrict any use of the information to criminally investigate or prosecute any alcohol or drug abuse patient.[facility]In the event this information is protected by the Federal Confidentiality of Alcohol and Drug Abuse Patient Records regulations: The Federal rules restrict any use of the information to criminally investigate or prosecute any alcohol or drug abuse patient.[facility] CampusIn the event this information is protected by the Federal Confidentiality of Alcohol and Drug Abuse Patient Records regulations: The Federal rules restrict any use of the information to criminally investigate or prosecute any alcohol or drug abuse patient.[facility] CampusIn the event this information is protected by the Federal Confidentiality of Alcohol and Drug Abuse Patient Records regulations: The Federal rules restrict any use of the information to criminally investigate or prosecute any alcohol or drug abuse patient.[facility] Reason for Visit (unrecogniz ed section and content) Reason Onset Date Comments Refill Request Refill Request 10/08/2021 Reason Comments Follow Up Reason Onset Date Comments Refill Request 12/16/2021 Reason Comments ICD Remote Reason Comments ICD Reason Comments Refill Request Reason Comments Patient Update Reason Comments Follow Up Care Teams (unrecognized sec tion and content) Laser Beam Trim Operator Relationship Specialty Start Date End Date Estelita Starr PCP - General 04/25/05 Laser Beam Trim Operator Relationship Specialty Start Date End Date Emanuel Harris [address] [place] [address] Referring Ophthalmology 02/03/22 Laser Beam Trim Operator Relationship Specialty Start Date End Date Emanuel Harris [address] [place] [address] Referring Ophthalmology 02/03/22 Laser Beam Trim Operator Relationship Specialty Start Date End Date Emanuel Harris [address] [place] [address] Referring Ophthalmology 02/03/22 Laser Beam Trim Operator Relationship Specialty Start Date End Date Emanuel Harris [address] [place] [address] Referring Ophthalmology 02/03/22 Laser Beam Trim Operator Relationship Specialty Start Date End Date Emanuel Harris [address] [place] [address] Referring Ophthalmology 02/03/22 Laser Beam Trim Operator Relationship Specialty Start Date End Date Emanuel Harris [address] [place] [address] Referring Ophthalmology 02/03/22 Laser Beam Trim Operator Relationship Specialty Start Date End Date Emanuel Harris [address] [place] [address] Referring Ophthalmology 02/03/22 Laser Beam Trim Operator Relationship Specialty Start Date End Date Emanuel Harris [facility] [place] [address] Referring Ophthalmology 02/03/22 Care Team (unrecognized sect ion and content) Care Team Personnel Name: MARYAN TESFAYE DO Position: P4 Physician - Primary Care Member Role: Primary Care Physician Address: Address: [address] [place] [address]- Care Team Related Persons Name: SNEHA GODDARD Address: Home [address] [place], [place] [id number] [place] Care Team Personnel Name: MARYAN TESFAYE DO Position: P4 Physician - Primary Care Member Role: Primary Care Physician Address: Address: [address] [place] [address]- Care Team Related Persons Name: SNEHA GODDARD Address: Home [address] [place], [place] [id number] Care Team Personnel Name: MARYAN TESFAYE DO Position: P4 Physician - Primary Care Member Role: Primary Care Physician Address: Address: [address] [place] [id number] [place] [address] Care Team Related Persons Name: SNEHA GODDARD Address: Home [address] [place], [place] [phone] Care Team Personnel Name: MARYAN TESFAYE DO Position: P4 Physician - Primary Care Member Role: Primary Care Physician Address: Address: [address] [place] [address] Care Team Related Persons Name: SNEHA GODDARD Address: Home [address] [place], [place] [id number] Care Team Personnel Name: MARYAN TESFAYE DO Position: P4 Physician - Primary Care Member Role: Primary Care Physician Address: Address: [address] [place] [address] Care Team Related Persons Name: SNEHA GODDARD Address: Home [address] [place], [place] [id number] FOR RECORDS PERTAINING TO PATIENTS WHO ARE OR HAVE BEEN ENROLLED IN A CHEMICAL DEPENDENCY/SUBSTANCEABUSE PROGRAM, SOME INFORMATION MAY BE OMITTED. This clinical summary was aggregated from multiple sources. Caution should be exercised in using it in the provision of clinical care. This summary normalizes information from multiple sources, and as a consequence, information in this document may materially change the coding, format and clinical context of patient data. In addition, data may be omitted in some cases. CLINICAL DECISIONS SHOULD BE BASED ON THE PRIMARY CLINICAL RECORDS. [employer] provides no warranty or guarantee of the accuracy or completeness of information in this document.
[2023-07-31 07:20] VITALS: BP 131/73; PULSE 76; RESP 16; O2SAT 98
== END 2023-07-31 07:35 | disposition home or self-care (01) ==
PROVIDERS: Emergency Provider Emergency Medicine; Visit Provider Emergency Medicine
DX: R42 Dizziness and giddiness (principal); R11.2 Nausea with vomiting, unspecified; I25.2 Old myocardial infarction; Z79.899 Other long term (current) drug therapy
CPT/HCPCS: 70450; 80048; 85025; 87631; 99283; J7030

== ENCOUNTER 2024-06-10 07:44 | Emergency (ER) | payer MEDICARE, OTHER, SELFPAY ==
[2024-06-10 07:48] VITALS: BP 128/71; PULSE 75; RESP 13; TEMP 36.8; O2SAT 98; BMI 23.1
--- NOTE | 2024-06-10 08:07 | EKG12_ITS ---
Test Reason : WEAKNESS Blood Pressure : */* mmHG Vent. Rate : 77 BPM Atrial Rate : 77 BPM P-R Int : 224 ms QRS Dur : 96 ms QT Int : 370 ms P-R-T Axes : * -32 135 degrees QTcB Int : 418 ms Atrial-paced rhythm with prolonged AV conduction with occasional sinus complexes Left axis deviation Left ventricular hypertrophy with repolarization abnormality ( R in aVL ) Possible Lateral infarct , age undetermined Confirmed by GAGANDEEP CARCAMO, STEVO ([id number]), proposal editor HAFSA MARLOW ([id number]) on 06/11/2024 9:22:15 AM Referred By: Confirmed By: STEVO DONIS MD
[2024-06-10 08:30] LABS: Lactic Acid 1.7 mmol/L (0.4-1.9)
--- NOTE | 2024-06-10 08:34 | EDS_ITS ---
HPI History of Present Illness Chief Complaint: Weakness Detail of Chief Complaint: Patient is legally blind, with sonophobia who presents for hemoptysis Informant: patient and spouse/S.O. Onset/Context/Timing Onset: Today (Hemoptysis noted today.) Context: Sudden Onset Timing: - (Present when he coughs.) Quality: Magdaleno blood per significant other since patient is blind. Location: Pulmonary Current Severity: Unable to quantitate Maximum Severity: Noted this morning for the first time. 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 He presents to the emergency room because of magdaleno hemoptysis. There is no history of PE or DVT. He denies leg pain. He denies shortness of breath. He denies chest discomfort of any type. He denies discomfort with breathing. Patient denies fever, chills or night sweats. Patient denies GI symptoms. Patient became irritated when I asked him if he knew the month and year. I informed him I asked him this questions because of the answers I got to other questions and unbeknownst to him his significant other is shaking her her head in disagreement with the patient. Patient reports being irritated. He also voiced his displeasure by cursing. Prior similar symptoms: No Recent Illness/Hospitalization: No [facility] Medical History Legally blind Heart disease BPH (benign prostatic hyperplasia) TX (myocardial infarction) Pacemaker Home Medications ?Medication ?Instructions ?Recorded ?Last Taken ?Type diazepam 2 mg tablet 2 mg PO TID PRN PRN Vertigo #10 07/31/23 Unknown Rx TABLETS dofetilide 500 mcg capsule 500 mcg PO Q12H 07/31/23 Unknown History dorzolamide 22.3 mg-timolol 6.8 1 drp ophthalmic (eye) Q12H 07/31/23 Unknown History mg/mL eye drops finasteride 5 mg tablet 5 mg PO DAILY 07/31/23 Unknown History fluticasone propionate 50 2 spray intranasal DAILY 07/31/23 Unknown History mcg/actuation nasal spray,suspension latanoprost 0.005 % eye drops 1 drp ophthalmic (eye) QHS 07/31/23 Unknown History metoprolol tartrate 50 mg tablet 50 mg PO Q12H 07/31/23 Unknown History naproxen 250 mg tablet 250 mg PO Q12H 07/31/23 Unknown History carvedilol 12.5 mg tablet 12.5 mg PO BID 06/10/24 Unknown History montelukast 10 mg tablet 10 mg PO DAILY 06/10/24 Unknown History omeprazole 20 mg capsule,delayed 20 mg PO BID 06/10/24 Unknown History release Allergy/AdvReac Type Severity Reaction Status Date / Time No Known Allergies Allergy Verified 06/10/24 07:48 Surgical History Hx of bilateral hip replacements AICD (automatic cardioverter/defibrillator) present Social History (Updated 06/10/24 @ 08:[address] Peter Garg MD) household members: spouse Smoking Status: Never smoker ROS ROS ED Constitutional Constitutional ED: Reports weight loss; Denies chills, fever(s) or subjective Eyes Eyes: Reports other Details: Patient is blind. ENT ENT ED: Reports rhinorrhea and other Details: Rhinorrhea for some time. ; Denies ear pain or sore throat Cardiovascular Cardiovascular: Denies chest pain, orthopnea, palpitations, paroxysmal nocturnal dyspnea or racing heartbeat Respiratory/Chest Respiratory/Chest: Reports cough, sputum and other Details: Per Magdaleno blood noted for the first time this morning. ; Denies dyspnea, dyspnea on exertion, orthopnea or paroxysmal nocturnal dyspnea Gastrointestinal Gastrointestinal: Denies abdominal pain, nausea or vomiting Musculoskeletal Musculoskeletal: Denies arthralgias, back pain, myalgias or neck pain Neurologic Neurologic: Denies headache(s) or paresthesias Psychiatric Psychiatric: Reports other Details: Voiced he is irritated and agitated. Hematologic/Lymphatic Hematologic/Lymphatic: Reports systems reviewed and no addt'l complaints, except as documented EXAM Physical Exam Const Vital Signs: 06/10/24 07:48 06/10/24 07:51 06/10/24 09:00 Temperature 98.2 F Temperature Source Oral Pulse Rate 75 75 Respiratory Rate 13 14 Respiratory Effort Normal Respiratory Pattern Normal Blood Pressure 128/71 H 109/66 Blood Pressure Mean 90 80 Pulse Ox 98 98 Oxygen Delivery Method Room Air 06/10/24 10:05 Temperature Temperature Source Pulse Rate 75 Respiratory Rate 13 Respiratory Effort Respiratory Pattern Blood Pressure 112/66 Blood Pressure Mean 81 Pulse Ox 98 Oxygen Delivery Method Positive well nourished and well developed Constitutional Narrative: Blood pressure is slightly elevated. He is not hypoxic. He is not tachycardic or tachypneic. General Appearance ED: well developed and NAD; Negative for pallor HEENT Reports moist mucous membranes HEENT Narrative: Head is atraumatic and normocephalic. Ears normal. Eyes PERRL and EOMs intact bilaterally General Eye ED: Negative for pale conjunctiva or scleral icterus Neck no lymphadenopathy, supple and no JVD Neck Narrative: There is no dysphonia. Trachea is midline. Chest Wall inspection of chest normal and palpation of chest normal Resp normal respiratory effort and No clear to auscultation bilaterally Resp Narrative: There are abnormal breath sounds with rales right lower lobe with egophony and increased vocal fremitus. There is no expiratory wheezing noted. Cardio regular rate, regular rhythm, S1 normal heart sound, S2 normal heart sound and no murmurs GI normal to inspection, nondistended, normoactive bowel sounds, non-tender, non- distended and no masses; Negative for hepatosplenomegaly Back/Spine no CVA tenderness Extremity Extremity Narrative: There is no asymmetry, swelling, discoloration, leg vein distention, palpable cords or tenderness along the distribution of the deep venous system. Neuro oriented x3 and CN's II-XII intact bilaterally Sensorium / Orientation: alert Psych Attitude: agitated Skin no rashes or lesions noted, no wounds and skin turgor normal General Skin Exam: Negative for jaundice or pallor MDM MDM MDM Narrative Medical decision making narrative: Differential diagnosis is bronchitis with hemoptysis, hemoptysis due to pneumonia, hemoptysis due to pulmonary embolus. Clinically has a right lower lobe pneumonia. If chest x-ray reveals no obvious infiltrate will obtain CTA. D-dimer was not obtained since this may be elevated due to infection especially if x-ray confirms pneumonia. Blood work was also obtained to assess for endorgan dysfunction. EKG to look for evidence of right heart strain pattern. With history of 120 pound weight loss over the past 2 years and a large lung mass will obtain a CT of the chest with IV contrast to evaluate this mass. History & Record Review Additional record(s) reviewed:: Prior ED visit (Seen July 31, 2023 for nausea and vomiting by Dr. Cartagena. Note was reviewed.) and Prior labs Lab Data Attestation: I reviewed the patient's lab results. Lab results narrative: Lactate is normal at 1.7. White count is elevated 15.5 thousand. Patient is anemic with normal indices. There is no bandemia. Labs: Laboratory Results - last 24 hr 06/10/24 07:55 WBC 15.5 H RBC 4.09 L Hgb 11.2 L Hct 36.0 L MCV 88.0 MCH 27.4 MCHC 31.1 L RDW Std Deviation 51.8 H RDW Coeff of Vita 16.2 H Plt Count 353 MPV 9.5 Immature Gran % (Auto) 0.400 Neut % (Auto) 73.5 H Lymph % (Auto) 16.6 L Ralls % (Auto) 8.8 Eos % (Auto) 0.4 Baso % (Auto) 0.3 Absolute Neuts (auto) 11.4 H Absolute Lymphs (auto) 2.57 Nucleated RBC % 0 Sodium 135 L Potassium 4.2 Chloride 104 Carbon Dioxide 25.0 Anion Gap 6 BUN 39 H Creatinine 1.71 H Estim Creat Clear Calc 33.31 Est GFR (MDRD) Af Amer 50 L Est GFR (MDRD) Non-Af 41 L BUN/Creatinine Ratio 22.8 H Glucose 87 Lactic Acid 1.7 Calcium 8.8 Total Bilirubin 1.00 AST 14 L ALT < 6 L Alkaline Phosphatase 118 H Total Protein 6.5 Albumin 1.9 L Globulin 4.6 H Albumin/Globulin Ratio 0.4 L Radiography Chest X-Ray - ED: 2 View, Read by ED Physician, Normal, Heart, Mediastinum, Bony Structures and - (There is a significant left lung mass.) Diagnostic Testing: Clinical Impression(s) from Imaging Studies Chest X-Ray 06/10/24 08:35 IMPRESSION: Left lung mass with small left pleural effusion. CT scan correlation recommended. Electronically Signed: Harshad Christensen MD at 9:08 EST , Chest CT 06/10/24 08:43 IMPRESSION: 6.8 cm x 6.8 cm x 7.7 cm solid mass in the posterior aspect of the left upper lobe as described. Loculated left pleural effusion. Distended gallbladder. Electronically Signed: Harshad Christensen MD at 9:22 EST , Treatment and Re-Evaluation :: Patient and were informed of CAT scan results. [place] [facility] referral was placed for fast pass. Discharge Plan Triage Chief Complaint: Weakness ED Provider: Peter Garg Dx/Rx/DC Orders Clinical Impression: Hemoptysis, Mass of left lung, Unintentional weight loss, Blind in both eyes Instructions: ED Hemoptysis Prescriptions: No Action finasteride 5 mg tablet 5 mg PO DAILY dofetilide 500 mcg capsule 500 mcg PO Q12H metoprolol tartrate 50 mg tablet 50 mg PO Q12H dorzolamide-timolol 22.3-6.8 mg/mL drops 1 drp ophthalmic (eye) Q12H Patient Comments: instill 1 drop into left eye twice a day latanoprost 0.005 % drops 1 drp ophthalmic (eye) QHS fluticasone propionate 50 mcg/actuation spray,suspension 2 spray INTRANASAL DAILY Patient Comments: instill 2 sprays into each nostril every morning naproxen 250 mg tablet 250 mg PO Q12H Patient Comments: take 1 tablet by mouth twice a day diazepam [diazepam] 2 mg tablet 2 mg PO TID PRN PRN (Reason: Vertigo) Qty: 10 0RF carvedilol 12.5 mg tablet 12.5 mg PO BID omeprazole 20 mg capsule,delayed release(DR/EC) 20 mg PO BID montelukast 10 mg tablet 10 mg PO DAILY Other Ambulatory Orders: Fast Pass: Oncology Referral [facility] (Routine) Facility: [facility] - Location: [facility] Ordered By: Dr. Peter Garg Primary Care Provider: Socrates Osullivan Referrals: Socrates Osullivan DO [Primary Care Provider] - Print Language: Guatemalan Disposition Disposition: Home, Self Care
--- NOTE | 2024-06-10 08:35 | RAD_ITS ---
STUDY: X-RAY CHEST REASON FOR EXAM: Male, 84 years old. Magdaleno hemoptysis, abnormal breath sounds right low -- Egophony increased vocal fremitus right lower lobe TECHNIQUE: AP and lateral views of the chest. COMPARISON: None. FINDINGS: EKG electrodes are seen. There is elevation of the left hemidiaphragm. There is a 7.4 cm by 7.1 cm mass in the left lung. Blunting of left costophrenic angle suggestive of a small left pleural effusion. Normal size heart. Normal mediastinum and carisa. Normal visualized pulmonary arteries. There is atherosclerotic tortuosity of the aortic arch and descending thoracic aorta. There are diffuse degenerative changes of the visualized thoracic spine. There is degenerative osteoarthritis of the bilateral shoulders. There is no demonstrated abnormality of the visualized soft tissue structures of the upper abdomen. RAD/Chest PA and Lateral IMPRESSION: Left lung mass with small left pleural effusion. CT scan correlation recommended. Electronically Signed: Harshad Christensen MD at 9:08 EST ,
[2024-06-10 08:37] LABS: Absolute Lymphocyte Count 2.57 X10^3/uL (0.83-4.51); Absolute Neutrophil Count 11.4 X10^3/uL (2.0-7.7); Basophil# 0.05 X10^3/uL; Basophil% 0.3 % (0-1); Eosinophil# 0.06 X10^3/uL; Eosinophils% 0.4 % (0-5); Hemoglobin 11.2 g/dL (13.0-16.5); Lymphocyte # 2.57 X10^3/ul (0.83-4.51); Lymphocyte % 16.6 % (19-41); Mean Corp Hgb Conc 31.1 g/dL (32-36); Mean Corpuscular Hgb 27.4 pg (27.0-32.0); Mean Platelet Vol. 9.5 fl (6.2-12.0); Monocyte# 1.37 X10^3/uL; Monocyte% 8.8 % (0-10); NRBC Flagged by Analyzer 0 % (0-5); Neutrophil # 11.41 X10^3/uL (2.7-7.7); Neutrophil % 73.5 % (47-70); Platelet Count 353 K/mm3 (150-450); RBC Distribution Width CV 16.2 % (11.6-14.6); RBC Distribution Width SD 51.8 fl (35.1-43.9); Red Blood Count 4.09 M/mm3 (4.6-6.2); White Blood Count 15.5 K/mm3 (4.4-11.0)
--- NOTE | 2024-06-10 08:43 | CT_ITS ---
STUDY: CT CHEST WITH CONTRAST REASON FOR EXAM: Male, 84 years old. Hemoptysis, left lung mass RADIATION DOSAGE (If Supplied By Facility): CTDIvol = ( 15.11 ) mGy, DLP = ( 535.39 ) mGycm TECHNIQUE: Transaxial imaging was performed following intravenous administration of IV 100mL [id number]-300. Multiplanar coronal and sagittal images were reformatted. Individualized dose optimization techniques were used for this CT. COMPARISON: Comparison is made with prior chest radiograph done earlier today. FINDINGS: CHEST There is a 6.8 cm x 6.8 cm x 7.7 cm solid mass in the posterior aspect of the left upper lobe abutting the lateral surface as well. This extends into the left hilar region with narrowing of the left intermediate stem bronchus. There is also evidence of a loculated left pleural effusion. Minimal left pleural effusion with left basilar atelectasis. There are calcifications of the coronary arteries. Normal mediastinum. Normal hilar regions. Normal unenhanced pulmonary arteries. Normal aorta arch and descending thoracic aorta. There are multi-level degenerative changes of the thoracic spine. Increased kyphosis. There is a distended gallbladder. Clinical correlation recommended. Pancreatic atrophy. CT/Chest WITH Contrast IMPRESSION: 6.8 cm x 6.8 cm x 7.7 cm solid mass in the posterior aspect of the left upper lobe as described. Loculated left pleural effusion. Distended gallbladder. Electronically Signed: Harshad Christensen MD at 9:22 EST ,
[2024-06-10 09:00] VITALS: BP 109/66; PULSE 75; RESP 14; O2SAT 98
[2024-06-10 09:01] LABS: ALB/GLOB Ratio 0.4 RATIO (0.9-2.4); AST(SGOT) 14 U/L (15-37); Alanine Aminotransfer ALT/SGPT < 6 U/L (16-61); Albumin, Serum 1.9 g/dL (3.2-5.0); Alkaline Phosphatase 118 U/L (45-117); Anion Gap 6 (5-15); BUN 39 mg/dL (7-18); BUN/Creat Ratio 22.8 RATIO (10-20); Calcium,Total 8.8 mg/dL (8.5-10.1); Chloride 104 mmol/L (98-107); Creatinine, Serum 1.71 mg/dL (0.70-1.30); EST Glomerular Filtration Rate 41 mL/min (>60); Est Glom Filt Rate - Afr Amer 50 mL/min (>60); Estimated Creatinine Clearance 33.31 ml/min; Globulin 4.6 g/dL (2.2-4.2); Glucose 87 mg/dL (74-106); Potassium 4.2 mmol/L (3.5-5.1); Protein, Total 6.5 g/dL (6.4-8.2); Sodium Level 135 mmol/L (136-145)
[2024-06-10 10:05] VITALS: BP 112/66; PULSE 75; RESP 13; O2SAT 98
== END 2024-06-10 10:23 | disposition home or self-care (01) ==
PROVIDERS: Emergency Provider Emergency Medicine; Visit Provider Emergency Medicine
DX: R04.2 Hemoptysis (principal); R91.8 Other nonspecific abnormal finding of lung field; R63.4 Abnormal weight loss; H54.8 Legal blindness, as defined in USA; R94.31 Abnormal electrocardiogram [ECG] [EKG]; N40.0 Benign prostatic hyperplasia without lower urinary tract symptoms; I25.2 Old myocardial infarction; Z95.810 Presence of automatic (implantable) cardiac defibrillator; Z79.899 Other long term (current) drug therapy
CPT/HCPCS: 71046; 71260; 80053; 83605; 85025; 93005; 99285; Q9967; A4216